=== PATIENT | male | born 1970 | race Caucasian/White ===

== ENCOUNTER 2016-11-08 15:16 | Outpatient (CLI) | payer MEDICAID ==
--- NOTE | 2016-11-09 09:05 | XRAY Report ---
THREE-VIEW LUMBAR SPINE: 11/08/2016 CLINICAL INDICATION: Pain. FINDINGS: AP, lateral, coned-down views of the lumbar spine demonstrate moderate degenerative disc a nd facet disease, with minimal retrolisthesis of L2 on L3 and L3 on L4, due to facet arthropathy. Th ere is no evidence of compression fracture. The bowel gas pattern is unremarkable. IMPRESSION: MODERATE DEGENERATIVE CHANGES. JOB #: [id number] EXT JOB #:[id number]
== END 2016-11-08 15:17 | disposition home or self-care (01) ==
LOC: DI.N 15:16
PROVIDERS: ATTEND Family Medicine
DX: M51.16 Intervertebral disc disorders with radiculopathy, lumbar region (principal); M43.16 Spondylolisthesis, lumbar region; M47.9 Spondylosis, unspecified
CPT/HCPCS: 72100

== ENCOUNTER 2017-02-20 08:00 | Outpatient (CLI) | payer MEDICAID ==
[2017-02-20 14:18] LABS: ALBUMIN/GLOBULIN RATIO 1.6 (1.0-2.2); BILIRUBIN,TOTAL 0.6 mg/dL (0.2-1.0); BUN - BLOOD UREA NITROGEN 20 mg/dL (6-20); CARBON DIOXIDE - CO2 26 mmol/L (21-32); CHLORIDE 101 mmol/L (101-111); CREATININE 0.9 mg/dL (0.6-1.2); GFR - MDRD 90 (>89); GLUCOSE 106 mg/dL (70-100); POTASSIUM 4.1 mmol/L (3.5-5.0); SODIUM 134 mmol/L (135-145); TOTAL PROTEIN 6.8 g/dL (6.7-8.2)
== END 2017-02-20 08:01 | disposition home or self-care (01) ==
LOC: LAB.N 08:00
PROVIDERS: ATTEND Psychiatry & Neurology Psychiatry
DX: Z79.899 Other long term (current) drug therapy (principal)
CPT/HCPCS: 36415; 80053; 80164

== ENCOUNTER 2017-04-03 10:32 | Outpatient (CLI) | payer MEDICAID ==
--- NOTE | 2017-04-03 13:41 | XRAY Report ---
THREE VIEW LEFT INDEX FINGER: 04/03/2017 CLINICAL INDICATION: Finger pain. FINDINGS: AP, lateral, oblique views of the left index finger demonstrate minimal osteoarthritis. There is no evidence of fracture or dislocation. No radiopaque foreign body is seen in the soft tissues. IMPRESSION: MINIMAL OSTEOARTHRITIS. TD: 04/03/2017 13:40
== END 2017-04-03 10:33 | disposition home or self-care (01) ==
LOC: DI 10:32
PROVIDERS: ATTEND Nurse Practitioner Gerontology
DX: M19.042 Primary osteoarthritis, left hand (principal)
CPT/HCPCS: 73140

== ENCOUNTER 2017-05-09 08:00 | Outpatient (CLI) | payer MEDICAID ==
[2017-05-09 19:07] LABS: BASOPHILS # (AUTO) 0.1 10^3/uL (0.0-0.1); BASOPHILS % (AUTO) 0.5 %; EOSINOPHILS % (AUTO) 0.4 %; HGB - HEMOGLOBIN 14.8 g/dL (14.0-18.0); LYMPHOCYTES # (AUTO) 3.4 10^3/uL (1.5-3.5); LYMPHOCYTES % (AUTO) 25.7 %; MEAN CORPUSCULAR HEMOGLOBIN 30.9 pg (27.0-31.0); MEAN CORPUSCULAR HGB CONC 33.7 g/dL (32.0-36.0); MEAN CORPUSCULAR VOLUME 91.7 fL (80.0-94.0); MEAN PLATELET VOLUME 9.1 fL (7.4-11.4); MONOCYTES # (AUTO) 1.4 10^3/uL (0.0-1.0); MONOCYTES % (AUTO) 10.2 %; NEUTROPHILS # (AUTO) 8.5 10^3/uL (1.5-6.6); NEUTROPHILS % (AUTO) 63.2 %; PLT - PLATELET COUNT 301 10^3/uL (130-450); RED BLOOD COUNT 4.79 10^6/uL (4.70-6.10); RED CELL DISTRIBUTION WIDTH 13.7 % (12.0-15.0); WHITE BLOOD COUNT 13.4 x10^3/uL (4.8-10.8)
[2017-05-09 19:34] LABS: CALCIUM 9.2 mg/dL (8.5-10.3); CREATININE 1.1 mg/dL (0.6-1.2)
[2017-05-09 19:43] LABS: FERRITIN 99.8 ng/mL (23.9-336.2)
[2017-05-09 19:46] LABS: FOLATE 16.48 ng/mL (5.90 - >24.8)
== END 2017-05-09 08:01 | disposition home or self-care (01) ==
LOC: LAB.N 08:00
PROVIDERS: ATTEND Physician Assistant Medical
DX: M79.1 Myalgia (principal); R19.7 Diarrhea, unspecified; R52 Pain, unspecified; R53.83 Other fatigue
CPT/HCPCS: 36415; 80048; 82607; 82728; 82746; 83540; 84466; 85025

== ENCOUNTER 2017-05-13 09:36 | Outpatient (CLI) | payer MEDICAID ==
[2017-05-13 10:15] LABS: VALPROIC ACID (DEPAKOTE) 27.7 ug/mL
== END 2017-05-13 09:37 | disposition home or self-care (01) ==
LOC: LAB 09:36
PROVIDERS: ATTEND Psychiatry & Neurology Psychiatry
DX: Z79.899 Other long term (current) drug therapy (principal)
CPT/HCPCS: 36415; 80164

== ENCOUNTER 2017-09-12 10:34 | Outpatient (CLI) | payer MEDICAID ==
[2017-09-12 13:45] LABS: RHEUMATOID FACTOR NEGATIVE (Negative)
[2017-09-14 15:06] LABS: ANA SCREEN NEGATIVE (NEGATIVE)
== END 2017-09-12 10:35 | disposition home or self-care (01) ==
LOC: LAB.N 10:34
PROVIDERS: ATTEND Nurse Practitioner Gerontology
DX: M25.50 Pain in unspecified joint (principal)
CPT/HCPCS: 36415; 85651; 86038; 86140; 86430

== ENCOUNTER 2017-09-18 11:13 | Emergency (ER) | payer MEDICAID ==
[2017-09-18 11:22] VITALS: BP 110/85
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
[2017-09-18] MEDS ORDERED: TETANUS/DIPHTHERIA/PERTUSSIS 0.5 ML SYRINGE IM ONE (12:01)
[2017-09-18] MEDS ORDERED: LIDOCAINE 1%-EPI 1:100000 30 ML MDV ONE (12:06)
== END 2017-09-18 13:26 | disposition home or self-care (01) ==
LOC: ED 11:13
DX: S01.01XA Laceration without foreign body of scalp, initial encounter (principal); S09.90XA Unspecified injury of head, initial encounter; W22.8XXA Striking against or struck by other objects, initial encounter
CPT/HCPCS: 12002; 99283

== ENCOUNTER 2017-10-11 09:20 | Outpatient (CLI) | payer MEDICAID ==
[2017-10-11 10:10] LABS: VALPROIC ACID (DEPAKOTE) 35.4 ug/mL
== END 2017-10-11 09:21 | disposition home or self-care (01) ==
LOC: LAB 09:20
PROVIDERS: ATTEND Nurse Practitioner Psychiatric/Mental Health
DX: F31.11 Bipolar disorder, current episode manic without psychotic features, mild (principal)
CPT/HCPCS: 36415; 80164

== ENCOUNTER 2017-10-22 06:54 | Day surgery (SDC) | payer MEDICAID ==
[2017-10-22] MEDS ORDERED: LACTATED RINGERS 1,000 ML IV ONE ×2 (07:04→09:13)
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
[2017-10-22] MEDS ORDERED: BUPIVACAINE 0.25%-EPI 1:200000 PF 30 ML VIAL ONE (08:14)
[2017-10-22] MEDS ORDERED: BUPIVACAINE 0.25%-EPI 1:200000 PF 10 ML VIAL SUBQ ONE ×2 (08:30→08:41)
[2017-10-22] MEDS ORDERED: ONDANSETRON 4 MG/2 ML VIAL IVP ONE (08:50)
[2017-10-22] MEDS ORDERED: MIDAZOLAM 2 MG/2 ML VIAL IVP ONE (08:50)
[2017-10-22] MEDS ORDERED: fentaNYL 100 MCG/2 ML VIAL IVP ONE (08:50)
[2017-10-22] MEDS ORDERED: DEXAMETHASONE 4 MG/ML VIAL IVP ONE (08:50)
[2017-10-22] MEDS ORDERED: PROPOFOL 200 MG/20 ML VIAL IVP ONE (08:50)
[2017-10-22] MEDS ORDERED: LIDOCAINE-MPF 2% 5 ML VIAL IM ONE (08:50)
[2017-10-22] MEDS ORDERED: KETOROLAC 30 MG/ML VIAL ONE (09:11)
[2017-10-22 09:41] VITALS: BP 110/80
--- NOTE | 2017-10-22 12:56 | OPERATIVE REPORT ---
DATE OF SERVICE: 10/22/2017 Physician: Michelle Wesley MD PREOPERATIVE DIAGNOSIS: Bilateral carpal tunnel syndrome. POSTOPERATIVE DIAGNOSIS: Bilateral carpal tunnel syndrome. PROCEDURE PERFORMED: Bilateral carpal tunnel release. OPERATING SURGEON: Michelle Wesley MD ANESTHESIA: Local, MAC, Ozzie Esposito MD INDICATIONS FOR SURGERY: The patient is a 47-year-old male with bilateral chronic carpal tunnel synd debbie, prior history of left wrist laceration with possible preexisting median nerve injury proximal t o the carpal tunnel. He presents desiring carpal tunnel release and specific consent was for simply carpal tunnel release of both right and left wrists and not an exploration further up his forearm of his previously remotely injured area. DESCRIPTION OF OPERATIVE PROCEDURE: The patient was taken to the operating room. He was given light MAC anesthetic, after which each hand was sterilely prepped and draped in a standard fashion. Surgi bolivar timeout was held, after which each carpal tunnel was injected with approximately 6 or 7 mL of a c ombination of 1% lidocaine and 0.25% Marcaine plain. Once the anesthetics were fully set, the initial surgery was done on the right wrist with a 1-1/2 inc h incision in line with the third web taken through skin and subcutaneous tissue, identifying the und erlying transverse carpal ligament, which was divided in line with the incision. The extent of the r elease was on its distal margin to the superficial arch, and on the proximal margin ending at the dis paul wrist flexion crease. The area was irrigated thoroughly and closed with 3-0 nylon interrupted. Sterile dressings were applied. The attention was then drawn to the other wrist where the identical procedure was performed with a 1- 1/2 inch incision in the palm in line with the third web dissection to the ligament and division of t he ligament. In the left hand, the release was directly exposed distally to the superficial arch, an d on the proximal aspect a very careful release was done under direct vision, because of previous sca rring up to the distal wrist flexion crease, staying away from the area of prior injury, which led to an adequate decompression, but there was no direct vision of the area of prior trauma. The nerve di d appear intact on the left side in the field of view. The wound was irrigated thoroughly. Closure was with 3-0 nylon, and sterile dressings were applied. The patient was taken to recovery room in st able condition. ESTIMATED BLOOD LOSS: Minimal. COMPLICATIONS: None. COUNTS: Sponge and needle counts correct. TD: 10/22/2017 12:18
== END 2017-10-22 06:55 | disposition home or self-care (01) ==
LOC: SDS 06:54
PROVIDERS: ATTEND Orthopaedic Surgery
PROC: 01N50ZZ Release Median Nerve, Open Approach (ICD-10-PCS; 2017-10-22)
PROC: 01N50ZZ Release Median Nerve, Open Approach (ICD-10-PCS; principal; 2017-10-22 08:15)
DX: G56.03 Carpal tunnel syndrome, bilateral upper limbs (principal); R20.2 Paresthesia of skin; L90.5 Scar conditions and fibrosis of skin; S61.512S Laceration without foreign body of left wrist, sequela; I10 Essential (primary) hypertension; E66.3 Overweight; F17.210 Nicotine dependence, cigarettes, uncomplicated; F25.0 Schizoaffective disorder, bipolar type; Z68.35 Body mass index [BMI] 35.0-35.9, adult; Z79.899 Other long term (current) drug therapy
CPT/HCPCS: 64721; J7120

== ENCOUNTER 2017-12-02 13:31 | Outpatient (CLI) | payer MEDICAID | END 2017-12-02 13:32 | disposition home or self-care (01) | LOC: DI 13:31 | PROVIDERS: ATTEND Physician Assistant Medical | DX: Z53.9 Procedure and treatment not carried out, unspecified reason (principal) ==

== ENCOUNTER 2017-12-02 16:09 | Emergency (ER) | payer MEDICAID ==
[2017-12-02] MEDS ORDERED: KETOROLAC 60 MG/2 ML VIAL IVP STA (16:55)
[2017-12-02] MEDS ORDERED: ONDANSETRON 4 MG/2 ML VIAL IVP STA (16:55)
--- NOTE | 2017-12-02 16:58 | ED Physician Documentation ---
PD HPI ABD PAIN - Stated complaint Stated Complaint: CONFUSION/MALE - Chief complaint Chief Complaint: Abd Pain - History obtained from History obtained from: Patient - History of Present Illness Timing - onset: Last night (In the middle of the night last night he got up feeling like he had to have a bowel movement. He strained for a while and nothing came out, drank a lot of water and then had some diarrhea but has persistent left lower quadrant and left groin pain with mild nausea today. No history of abdominal surgeries, hernias,. He was seen by his physician earlier in the day and scheduled for a scrotal ultrasound, but was feeling a little disoriented on the way here and got concerned. No fevers. No urinary complaints.) Review of Systems Ten Systems: 10 systems reviewed and negative Constitutional: denies: Fever, Chills Cardiac: denies: Chest pain / pressure, Palpitations Respiratory: denies: Dyspnea, Cough GI: reports: Abdominal Pain, Nausea, Constipation, Diarrhea. denies: Vomiting : denies: Dysuria, Frequency PD PAST MEDICAL HISTORY - Past Medical History Past Medical History: No Cardiovascular: Hypertension Respiratory: None Endocrine/Autoimmune: None GI: None : None HEENT: Chronic vision loss Psych: Bipolar disorder, Schizophrenia Musculoskeletal: None Derm: None - Past Surgical History Past Surgical History: No Ortho: Carpal Tunnel surgery - Present Medications Home Medications: Ambulatory Orders Medication Instructions Recorded Confirmed Diclofenac Sodium Dr [Voltaren] 75 mg PO QPM 10/21/17 10/22/17 Divalproex Sodium [Depakote] 500 mg PO BID 10/21/17 10/22/17 Divalproex Sodium [Depakote] 750 mg PO QPM 10/21/17 10/22/17 Naproxen [Naprosyn] 500 mg PO PRN PRN 10/21/17 10/22/17 RX: Metoprolol Tartrate 25 mg PO BID 10/21/17 10/22/17 RX: Trazodone HCl 150 mg PO QPM 10/21/17 10/22/17 buPROPion HCl [Wellbutrin Sr] 200 mg PO BID 10/21/17 10/22/17 risperiDONE [Risperdal] 1 mg PO DAILY 10/21/17 10/22/17 Ciprofloxacin HCl [Cipro] 500 mg PO BID #20 tablet 10/08/18 Hydrocodone/Acetaminophen 1 - 2 each PO Q6H PRN #10 tablet 12/02/17 [Hydrocodon-Acetaminophen 5-325] Metronidazole [Flagyl] 500 mg PO TID #30 tablet 12/02/17 - Allergies Allergies/Adverse Reactions: Allergies Allergy/AdvReac Type Severity Reaction Status Date / Time haloperidol [From Haldol] Allergy Itching Verified 12/02/17 16:14 [email or web address] [From Chantix] Allergy Dizziness Verified 12/02/17 16:14 librax Allergy Anaphylaxis Uncoded 12/02/17 16:14 - Social History Does the pt smoke?: Yes Smoking Status: Current some day smoker Does the pt drink ETOH?: No Does the pt have substance abuse?: No - Immunizations Immunizations are current?: Yes - POLST Patient has POLST: No PD ED PE NORMAL - Vitals Vital signs reviewed: Yes - General General: Alert and oriented X 3, No acute distress - HEENT HEENT: PERRL, EOMI - Neck Neck: Supple, no meningeal sign, No bony TTP - Cardiac Cardiac: RRR, No murmur - Respiratory Respiratory: No respiratory distress, Clear bilaterally - Abdomen Abdomen: Normal bowel sounds, Soft, Other (Significant tenderness in the left lower quadrant without surgical signs) - Male Male : Other (Bilateral normal cremasteric reflex, normal lie of the testicles without testicular swelling or tenderness. No hernia mass.) - Rectal Rectal: Other (No fecal impaction, nontender) - Back Back: No CVA TTP, No spinal TTP - Derm Derm: Normal color, Warm and dry - Extremities Extremities: No edema, No calf tenderness / cord - Neuro Neuro: Alert and oriented X 3, Normal speech Results - Vitals Vitals: Vital Signs - 24 hr 12/02/17 16:11 Temperature 36.4 C L Heart Rate 113 H Respiratory 16 Rate Blood Pressure 125/85 H O2 Saturation 99 Oxygen O2 Source Room air - Rads (name of study) CT A/P Radiology: EMP read contemporaneously (Uncomplicated diverticulitis, gallstone, left bilat hernia with fat only.) Scrotal sono Radiology: EMP read contemporaneously (NAD, microliths, inguinal hernia) PD MEDICAL DECISION MAKING - ED course ED course: 47-year-old gentleman presents with acute left pelvic pain. He was sent for an outpatient ultrasound, but to my examination seems more like an intra-abdominal source which is proven on CT showing uncomplicated diverticulitis for which she is treated with Cipro and Flagyl. - Sepsis Event Vital Signs: Vital Signs - 24 hr 12/02/17 16:11 Temperature 36.4 C L Heart Rate 113 H Respiratory 16 Rate Blood Pressure 125/85 H O2 Saturation 99 Oxygen O2 Source Room air Departure - Departure Disposition: 01 Home, Self Care Clinical Impression: Diverticulitis, Pelvic pain in male Condition: Good Record reviewed to determine appropriate education?: Yes Instructions: ED Diverticulitis Prescriptions: Ciprofloxacin HCl [Cipro] 500 mg PO BID #20 tablet Hydrocodone/Acetaminophen [Hydrocodon-Acetaminophen 5-325] 1 - 2 each PO Q6H PRN #10 tablet PRN Reason: pain Metronidazole [Flagyl] 500 mg PO TID #30 tablet Comments: Do not drink alcohol while taking the antibiotics. Return if worse in any way. Follow-up with your doctor in 3-4 days for recheck, also note the given the diagnosis she will need to be scheduled for a colonoscopy in 4-6 months. Discharge Date/Time: 12/02/17 19:44
[2017-12-02 17:12] LABS: HGB - HEMOGLOBIN 14.3 g/dL (14.0-18.0)
[2017-12-02 17:25] LABS: BASOPHILS % (AUTO) 0.3 %; LYMPHOCYTES % (AUTO) 5.2 %; MEAN CORPUSCULAR HEMOGLOBIN 31.7 pg (27.0-31.0); MEAN CORPUSCULAR HGB CONC 34.3 g/dL (32.0-36.0); MEAN CORPUSCULAR VOLUME 92.5 fL (80.0-94.0); MEAN PLATELET VOLUME 8.8 fL (7.4-11.4); MONOCYTES % (AUTO) 6.5 %; PLT - PLATELET COUNT 248 10^3/uL (130-450); RED BLOOD COUNT 4.51 10^6/uL (4.70-6.10); RED CELL DISTRIBUTION WIDTH 13.2 % (12.0-15.0); WHITE BLOOD COUNT 20.3 x10^3/uL (4.8-10.8)
[2017-12-02 17:28] LABS: ALBUMIN 4.2 g/dL (3.2-5.5); ALBUMIN/GLOBULIN RATIO 1.4 (1.0-2.2); BILIRUBIN,TOTAL 0.9 mg/dL (0.2-1.0); CALCIUM 8.9 mg/dL (8.5-10.3); CREATININE 0.9 mg/dL (0.6-1.2); TOTAL PROTEIN 7.1 g/dL (6.7-8.2)
[2017-12-02 17:32] LABS: ABNORMAL LYMPHS % (MANUAL) 0 %; VALPROIC ACID (DEPAKOTE) 66.3 ug/mL
[2017-12-02] MEDS ORDERED: IOPAMIDOL-300 100 ML VIAL ONE (17:33)
[2017-12-02 17:38] LABS: BILIRUBIN,URINE NEGATIVE (NEGATIVE); GLUCOSE, URINE (UA) NEGATIVE (NEGATIVE); KETONES,URINE (UA) 15 mg/dL (NEGATIVE); LEUKOCYTE ESTERASE, URINE NEGATIVE (NEGATIVE); NITRITE,URINE NEGATIVE (NEGATIVE); OCCULT BLOOD,URINE NEGATIVE (NEGATIVE); PROTEIN,URINE NEGATIVE (NEGATIVE); UROBILINOGEN,URINE 0.2 (NORMAL) E.U./dL (NORMAL)
[2017-12-02 17:44] LABS: CLARITY,URINE CLEAR (CLEAR)
[2017-12-02 18:13] LABS: BAND NEUTROPHILS % (MANUAL) 7 %; DIFFERENTIAL COMMENT MANUAL DIFFERENTIAL; LYMPHOCYTES # (MANUAL) 0.4 10^3/uL (1.5-3.5); LYMPHOCYTES % (MANUAL) 2 %; NEUTROPHILS # (MANUAL) 18.9 10^3/uL (1.5-6.6); NEUTROPHILS % (MANUAL) 86 %; PLATELET ESTIMATE, MANUAL NORMAL (130-450,000) (NORMAL); PLATELET MORPHOLOGY NORMAL APPEARANCE (NORMAL); RBC MORPHOLOGY (MULTIPLE) NORMAL APPEARANCE (NORMAL)
[2017-12-02] MEDS ORDERED: IOPAMIDOL-300 100 ML VIAL IVP ONE (18:58)
--- NOTE | 2017-12-02 19:23 | CT Report ---
Reason: IV only, LLQ pain Procedure Date: 12/02/2017 Accession Number: [id number] / [id number] Procedure: CT - Abdomen/Pelvis W/ CPT Code: FULL RESULT: EXAM: CT ABDOMEN AND PELVIS EXAM DATE: 12/02/2017 06:21 PM. CLINICAL HISTORY: IV only, LLQ pain. COMPARISONS: None. TECHNIQUE: Routine helical CT imaging was performed through the abdomen and pelvis. IV contrast: 100 cc Isovue-300. Enteric contrast: No. Reconstructions: Coronal and sagittal. In accordance with CT protocol optimization, one or more of the following dose reduction techniques were utilized for this exam: automated exposure control, adjustment of mA and/or KV based on patient size, or use of iterative reconstructive technique. FINDINGS: Lung Bases: Mild dependent change. Liver: Prominent with right lobe 21.6 cm in height. Mild diffuse steatosis. No focal lesion. Gallbladder/Bile Ducts: A 2.3 cm gallstone in the dependent gallbladder. No gallbladder wall thickening, pericholecystic infiltration, or dilated bile ducts. Spleen: Normal. Pancreas: Unremarkable. Adrenal Glands: No nodule. Kidneys: No hydronephrosis. An 8 mm hypodensity in medial cortex of right midpole, probably cystic. Otherwise unremarkable bilateral kidneys. Peritoneal Cavity/Bowel: Mild sigmoid diverticulosis. Eccentric segmental thickening of mid sigmoid colon with pericolic fat stranding and mild thickening of sigmoid mesocolon, consistent with acute diverticulitis. No upstream dilatation, free air or abscess. Unremarkable small bowel including terminal ileum. Normal retrocecal appendix. No mesenteric adenopathy. Retroperitoneum: No mass or adenopathy. Pelvic Organs: Intact bladder with tiny urachal remnant. No prostatic enlargement. Small fat-containing direct inguinal hernias, right more prominent than left. Vasculature: Modest calcified plaques of infrarenal abdominal aorta. No aneurysm or other significant abnormality. Bones: Moderate multilevel degenerative changes of lumbar spine. IMPRESSION: 1. Consistent with uncomplicated acute sigmoid diverticulitis. 2. No other focal inflammatory or obstructive process. 3. Cholelithiasis. 4. Enlarged fatty liver. 5. Small right greater than left fat-containing bilateral inguinal hernias, likely direct. RADIA
[2017-12-02] MEDS ORDERED: CIPROFLOXACIN 250 MG TABLET PO STA (19:27)
[2017-12-02] MEDS ORDERED: metroNIDAZOLE 250 MG TABLET PO STA (19:27)
[2017-12-02 19:32] VITALS: BP 147/94
--- NOTE | 2017-12-02 19:34 | Ultrasound Report ---
Reason: L groin pain Procedure Date: 12/02/2017 Accession Number: [id number] / [id number] Procedure: US - Testicle w/Doppler CPT Code: FULL RESULT: EXAM: SCROTAL ULTRASOUND EXAM DATE: 12/02/2017 07:12 PM. CLINICAL HISTORY: Left groin pain. COMPARISON: ABDOMEN/PELVIS W/ 12/02/2017 5:53 PM. TECHNIQUE: Real-time scanning was performed with static images obtained. Both color-flow and Doppler spectral analysis were utilized. FINDINGS: Right: Testis: 4.9 x 1.7 x 3.2 cm. Normal size. A few microlithiasis. No abnormal blood flow. Epididymis: 2.2 x .76 x 1.0 cm. Normal size and echotexture. No solid mass, calcification, or abnormal blood flow. Right epididymal cyst measuring 9 x 5 x 6 mm, appears simple. Hydrocele: Within normal limits. Varicocele: None. Left: Testis: 4.8 x 1.9 x 3.0 cm. Normal size and echotexture. No mass, calcification, or abnormal blood flow. Epididymis: 2.6 x .76 x 1.3 cm. Normal size and echotexture. No mass or abnormal blood flow. Hydrocele: None. Varicocele: None. There appears to be a small fat-containing inguinal hernia with a neck of 1.1 cm. IMPRESSION: 1. No acute findings. 2. A few right testicular microlithiasis. 3. There appears to be a small fat-containing inguinal hernia with a neck of 1.1 cm. RADIA
== END 2017-12-02 19:44 | disposition home or self-care (01) ==
LOC: ED 16:09
DX: K57.92 Diverticulitis of intestine, part unspecified, without perforation or abscess without bleeding (principal); I10 Essential (primary) hypertension; Z79.1 Long term (current) use of non-steroidal anti-inflammatories (NSAID); F17.200 Nicotine dependence, unspecified, uncomplicated; K76.0 Fatty (change of) liver, not elsewhere classified; K40.90 Unilateral inguinal hernia, without obstruction or gangrene, not specified as recurrent
CPT/HCPCS: 36415; 74177; 76870; 80053; 80164; 81003; 83690; 85025; 93975; 96374; 96375; 99283; 99284; A9270; Q9967; 81001; 87086

== ENCOUNTER 2017-12-13 08:31 | Outpatient (CLI) | payer MEDICAID | END 2017-12-13 08:32 | disposition home or self-care (01) | LOC: LAB.N 08:31 | PROVIDERS: ATTEND Nurse Practitioner Psychiatric/Mental Health | DX: F31.11 Bipolar disorder, current episode manic without psychotic features, mild (principal) | CPT/HCPCS: 36415; 80164 ==

== ENCOUNTER 2018-01-30 11:26 | Day surgery (SDC) | payer MEDICAID ==
[2018-01-30] MEDS ORDERED: LACTATED RINGERS 1,000 ML IV ONE ×2 (12:02→13:20)
[2018-01-30] MEDS ORDERED: fentaNYL 250 MCG/5 ML VIAL IVP ONE (12:51)
[2018-01-30] MEDS ORDERED: MIDAZOLAM 2 MG/2 ML VIAL IVP ONE (12:51)
--- NOTE | 2018-01-30 13:21 | ANESTHESIA ---
Pre-Anesthesia VS, & Labs - Diagnosis Abnormal CT scan of colon - Procedure colonoscopy Vital Signs: Temp Pulse Resp BP Pulse Ox 37 C 81 18 134/92 H 97 01/30/18 11:40 01/30/18 11:40 01/30/18 11:40 01/30/18 11:40 01/30/18 11:40 Height 5 ft 10 in Weight (kg) 111 kg Body Mass Index 33.9 - NPO >8 hours Home Medications and Allergies Divalproex Sodium [Depakote] 500 mg PO BID 10/21/17 Divalproex Sodium [Depakote] 750 mg PO QPM 10/21/17 Metoprolol Tartrate 25 mg PO BID 10/21/17 Trazodone HCl 150 mg PO QPM 10/21/17 buPROPion HCl [Wellbutrin Sr] 200 mg PO BID 10/21/17 risperiDONE [Risperdal] 1 mg PO DAILY 10/21/17 Allergies/Adverse Reactions: Allergies Allergy/AdvReac Type Severity Reaction Status Date / Time haloperidol [From Haldol] Allergy Itching Verified 12/02/17 16:14 [email or web address] [From Chantix] Allergy Dizziness Verified 12/02/17 16:14 librax Allergy Anaphylaxis Uncoded 12/02/17 16:14 Anes History & Medical History - Medical History Cardiovascular: reports: Hypertension Pulmonary: reports: None Gastrointestinal: reports: None Urinary: reports: None Musculoskeletal: reports: None Endocrine/Autoimmune: reports: None Skin: reports: None Smoking Status: Current some day smoker - Surgical History Orthopedic: Carpal Tunnel surgery Exam General: Other (Unable to assess, rescue sedation) Plan Anesthesia Type: MAC Consent for Procedure(s) Verified and Reviewed: Yes Code Status: Attempt Resuscitation ASA classification: 3-Severe systemic disease Is this case an emergency?: Yes (Rescue sedation, history obtained from chart review)
[2018-01-30] MEDS ORDERED: PROPOFOL 200 MG/20 ML VIAL IVP ONE (13:42)
[2018-01-30 14:32] VITALS: BP 123/89
== END 2018-01-30 11:27 | disposition home or self-care (01) ==
LOC: SDS 11:26
PROVIDERS: ATTEND Internal Medicine Gastroenterology
PROC: 0DBP8ZZ Excision of Rectum, Via Natural or Artificial Opening Endoscopic (ICD-10-PCS; 2018-01-30)
PROC: 0DBN8ZZ Excision of Sigmoid Colon, Via Natural or Artificial Opening Endoscopic (ICD-10-PCS; principal; 2018-01-30 13:15)
DX: R93.3 Abnormal findings on diagnostic imaging of other parts of digestive tract (principal); K57.30 Diverticulosis of large intestine without perforation or abscess without bleeding; D12.5 Benign neoplasm of sigmoid colon; K62.1 Rectal polyp; T88.52XA Failed moderate sedation during procedure, initial encounter; I10 Essential (primary) hypertension; F17.210 Nicotine dependence, cigarettes, uncomplicated; E66.9 Obesity, unspecified; Z68.35 Body mass index [BMI] 35.0-35.9, adult
CPT/HCPCS: 45380; 45385; J3010; J7120

== ENCOUNTER 2018-01-31 08:00 | Outpatient (CLI) | payer MEDICAID ==
[2018-01-31 12:56] LABS: VALPROIC ACID (DEPAKOTE) 67.8 ug/mL
== END 2018-01-31 23:59 ==
LOC: LAB.N 08:00
PROVIDERS: ATTEND Nurse Practitioner Psychiatric/Mental Health
DX: F31.11 Bipolar disorder, current episode manic without psychotic features, mild (principal)
CPT/HCPCS: 36415; 80164

== ENCOUNTER 2018-05-28 07:41 | Outpatient (CLI) | payer MEDICAID | END 2018-05-28 23:59 | disposition home or self-care (01) | LOC: RT.N 07:41 | PROVIDERS: ATTEND Physician Assistant Medical | DX: Z79.899 Other long term (current) drug therapy (principal) | CPT/HCPCS: 93005 ==

== ENCOUNTER 2018-08-18 10:43 | Outpatient (CLI) | payer MEDICAID ==
--- NOTE | 2018-08-18 11:57 | XRAY Report ---
Reason: HIP JOINT PAIN,RIGHT Procedure Date: 08/18/2018 Accession Number: [id number] / [id number] Procedure: WCP - Hip w/Pelvis 2-3V RT CPT Code: FULL RESULT: EXAM: RIGHT HIP RADIOGRAPHY EXAM DATE: 08/18/2018 10:57 AM. CLINICAL HISTORY: Hip joint pain, right. COMPARISON: None. TECHNIQUE: 2 views. FINDINGS: Bones: Normal. No fractures or bone lesion. Joints: Relatively symmetric mild joint space narrowing of the femoral acetabular joints with subjectively moderate osteophytosis. Soft Tissues: Normal. No soft tissue swelling. IMPRESSION: Mild to moderate degenerative hip disease. RADIA
== END 2018-08-18 10:44 | disposition home or self-care (01) ==
LOC: DI.WCP 10:43
PROVIDERS: ATTEND Family Medicine
DX: M16.11 Unilateral primary osteoarthritis, right hip (principal)

== ENCOUNTER 2018-08-30 13:28 | Emergency (ER) | payer MEDICAID ==
[2018-08-30 13:35] VITALS: BP 144/86
[2018-08-30] MEDS ORDERED: TRIAMCINOLONE 40 MG/ML VIAL IM STA (13:44)
[2018-08-30] MEDS ORDERED: BUPIVACAINE 0.5%-EPI 1:200000 PF 10 ML VIAL SUBQ STA (13:44)
--- NOTE | 2018-08-30 13:51 | ED Physician Documentation ---
History of Present Illness - Stated complaint Stated Complaint: RT HIP PX - Chief complaint Chief Complaint: Ext Problem - History obtained from History obtained from: Patient - History of Present Illness Timing: Other (48-year-old gentleman for about a month without specific injury has had progressive pain of the superior right buttock radiating down towards the lateral right hip down to the knee and in fact all the way to the foot. He was diagnosed with hip osteoarthritis by x-ray. Hurts to stand. He was prescribed an NSAID without relief. There is no weakness, numbness, tingling, saddle anesthesia, incontinence, or fevers.) Review of Systems Ten Systems: 10 systems reviewed and negative Constitutional: denies: Fever, Chills Cardiac: denies: Chest pain / pressure, Palpitations Respiratory: denies: Dyspnea, Cough PD PAST MEDICAL HISTORY - Past Medical History Cardiovascular: Hypertension Respiratory: None Endocrine/Autoimmune: None GI: None : None HEENT: Chronic vision loss Psych: Bipolar disorder, Schizophrenia Musculoskeletal: None Derm: None - Past Surgical History Past Surgical History: No Ortho: Carpal Tunnel surgery - Present Medications Home Medications: Ambulatory Orders Medication Instructions Recorded Confirmed Divalproex Sodium [Depakote] 500 mg PO BID 10/21/17 01/30/18 Divalproex Sodium [Depakote] 750 mg PO QPM 10/21/17 01/30/18 Metoprolol Tartrate 25 mg PO BID 10/21/17 01/30/18 Trazodone HCl 150 mg PO QPM 10/21/17 01/30/18 buPROPion HCl [Wellbutrin Sr] 200 mg PO BID 10/21/17 01/30/18 risperiDONE [Risperdal] 1 mg PO DAILY 10/21/17 01/30/18 Hydrocodone/Acetaminophen 1 - 2 each PO Q6H PRN #14 tablet 08/30/18 [Hydrocodon-Acetaminophen 5-325] Physical Therapy 1 unit TD ONCE #1 08/30/18 - Allergies Allergies/Adverse Reactions: Allergies Allergy/AdvReac Type Severity Reaction Status Date / Time haloperidol [From Haldol] Allergy Itching Verified 08/30/18 13:35 [email or web address] [From Chantix] Allergy Dizziness Verified 08/30/18 13:35 librax Allergy Anaphylaxis Uncoded 08/30/18 13:35 - Social History Does the pt smoke?: Yes Smoking Status: Current every day smoker Does the pt drink ETOH?: No Does the pt have substance abuse?: No - Immunizations Immunizations are current?: Yes - POLST Patient has POLST: No PD ED PE NORMAL - Vitals Vital signs reviewed: Yes - General General: Alert and oriented X 3, No acute distress - Extremities Extremities: Other (There is a focal spot of tenderness of the superior right buttock, pain with internal and external rotation of the right hip. The patient has equal and normal Achilles and patellar reflexes bilaterally. Normal sensation in all areas of the legs. Patient denies saddle anesthesia. Normal strength in flexion-extension at the ankles, knees, and flexion of the hips.) - Neuro Neuro: Alert and oriented X 3, Normal speech Results - Vitals Vitals: Vital Signs - 24 hr 08/30/18 13:31 Temperature 36.2 C L Heart Rate 91 Respiratory 22 Rate Blood Pressure 144/86 H O2 Saturation 96 Oxygen O2 Source Room air Procedures - General procedure General procedure: In the past he has had relief with similar symptoms with trigger point injection and after informed consent the trigger point of the superior right buttock was found and infiltrated locally with a mixture of 8 mL of Marcaine with epinephrine and 40 mg of Kenalog. Departure - Departure Disposition: 01 Home, Self Care Clinical Impression: Sciatica Qualifiers: Laterality: right Qualified Code(s): M54.31 - Sciatica, right side Condition: Good Record reviewed to determine appropriate education?: Yes Health Concerns: back pain Plan of Treatment: trigger point injection, continue NSAID, add hydrocodone, physical therapy Care Goals: pain improvement Assessment: as above Instructions: ED Sciatica Prescriptions: Hydrocodone/Acetaminophen [Hydrocodon-Acetaminophen 5-325] 1 - 2 each PO Q6H PRN #14 tablet PRN Reason: pain Physical Therapy 1 unit TD ONCE #1 Comments: Call your doctor to arrange a follow-up appointment, make the next available gary ointment. In the interim, return anytime if worse or if new symptoms develop.
== END 2018-08-30 14:01 | disposition home or self-care (01) ==
LOC: ED 13:28
DX: M54.31 Sciatica, right side (principal); I10 Essential (primary) hypertension; F17.200 Nicotine dependence, unspecified, uncomplicated
CPT/HCPCS: 20552; 99283

== ENCOUNTER 2019-03-27 09:41 | Outpatient (CLI) | payer MEDICAID ==
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
== END 2019-03-27 09:42 | disposition home or self-care (01) ==
LOC: DI.N 09:41
PROVIDERS: ATTEND Physician Assistant Medical
DX: R07.89 Other chest pain (principal)
CPT/HCPCS: 71046

== ENCOUNTER 2019-03-27 09:42 | Outpatient (CLI) | payer MEDICAID ==
[2019-03-27 12:04] LABS: HGB - HEMOGLOBIN 14.3 g/dL (14.0-18.0); MEAN CORPUSCULAR HEMOGLOBIN 31.3 pg (27.0-31.0); MEAN CORPUSCULAR HGB CONC 33.6 g/dL (32.0-36.0); MEAN PLATELET VOLUME 11.1 fL (7.4-11.4); RED BLOOD COUNT 4.57 10^6/uL (4.70-6.10); RED CELL DISTRIBUTION WIDTH 13.2 % (12.0-15.0); WHITE BLOOD COUNT 8.6 x10^3/uL (4.8-10.8)
[2019-03-27 12:12] LABS: CREATININE 0.9 mg/dL (0.6-1.2)
== END 2019-03-27 23:59 | disposition home or self-care (01) ==
LOC: LAB.N 09:42
PROVIDERS: ATTEND Physician Assistant Medical
DX: R07.89 Other chest pain (principal)
CPT/HCPCS: 36415; 80048; 83880; 84443; 85027

== ENCOUNTER 2019-04-09 09:20 | Outpatient (CLI) | payer MEDICAID | END 2019-04-09 09:21 | disposition home or self-care (01) | LOC: RT 09:20 | PROVIDERS: ATTEND Physician Assistant Medical | DX: R07.89 Other chest pain (principal) | CPT/HCPCS: 94010 ==

== ENCOUNTER 2019-04-22 10:53 | Outpatient (CLI) | payer MEDICAID ==
--- NOTE | 2019-04-22 18:12 | XRAY Report ---
Reason: HAND PAIN Procedure Date: 04/22/2019 Accession Number: [id number] / [id number] Procedure: XRN - Hand 2 View BILAT CPT Code: Final Report FULL RESULT: EXAMS: 1. Right Hand Radiography 2. Left Hand Radiography EXAM DATE: 04/22/2019 11:27 AM. CLINICAL HISTORY: HAND PAIN. COMPARISON: None. TECHNIQUE: 2 views each hand. FINDINGS: Right: Bones: No evidence of acute fracture. There is a subcentimeter geographic lytic lesion within the second proximal phalanx. This probably represents a small bone cyst. Joints: Normal. No subluxations. Soft Tissues: No significant soft tissue abnormalities are seen. There is no evidence of radiopaque foreign body. Left: Bones: Normal. No fractures or bone lesions. Joints: Normal. No subluxations. Soft Tissues: There is a punctate radiopacity within the distal fourth digit soft tissues. IMPRESSION: 1. No evidence of fracture or dislocation. 2. There is a geographic lytic lesion within the second proximal phalanx. 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 3. There is a punctate metallic radiopacity within the soft tissues of the distal fourth digit. RADIA
== END 2019-04-22 10:54 | disposition home or self-care (01) ==
LOC: DI.N 10:53
PROVIDERS: ATTEND Physician Assistant Medical
DX: M79.642 Pain in left hand (principal); M79.641 Pain in right hand; M89.9 Disorder of bone, unspecified

== ENCOUNTER 2019-04-22 11:35 | Outpatient (CLI) | payer MEDICAID ==
[2019-04-22 18:31] LABS: BASOPHILS # (AUTO) 0.1 10^3/uL (0.0-0.1); BASOPHILS % (AUTO) 0.6 %; EOSINOPHILS # (AUTO) 0.2 10^3/uL (0.0-0.7); EOSINOPHILS % (AUTO) 1.9 %; HGB - HEMOGLOBIN 14.9 g/dL (14.0-18.0); LYMPHOCYTES # (AUTO) 2.7 10^3/uL (1.5-3.5); LYMPHOCYTES % (AUTO) 30.4 %; MEAN CORPUSCULAR HEMOGLOBIN 30.8 pg (27.0-31.0); MEAN CORPUSCULAR HGB CONC 32.7 g/dL (32.0-36.0); MEAN PLATELET VOLUME 11.3 fL (7.4-11.4); MONOCYTES # (AUTO) 0.8 10^3/uL (0.0-1.0); MONOCYTES % (AUTO) 9.4 %; NEUTROPHILS # (AUTO) 5.1 10^3/uL (1.5-6.6); NEUTROPHILS % (AUTO) 57.4 %; PLT - PLATELET COUNT 311 10^3/uL (130-450); RED BLOOD COUNT 4.84 10^6/uL (4.70-6.10); RED CELL DISTRIBUTION WIDTH 13.2 % (12.0-15.0); WHITE BLOOD COUNT 8.9 x10^3/uL (4.8-10.8)
[2019-04-22 20:23] LABS: RHEUMATOID FACTOR NEGATIVE (Negative)
== END 2019-04-22 23:59 | disposition home or self-care (01) ==
LOC: LAB.N 11:35
PROVIDERS: ATTEND Physician Assistant Medical
DX: M79.643 Pain in unspecified hand (principal)
CPT/HCPCS: 36415; 85025; 85651; 86140; 86200; 86430

== ENCOUNTER 2019-06-28 18:17 | Inpatient (IN) | payer MEDICAID ==
[2019-06-28] MEDS ORDERED: ONDANSETRON 4 MG/2 ML VIAL IVP STA (18:29)
[2019-06-28] MEDS ORDERED: SODIUM CHLORIDE 0.9% 1,000 ML IV STA (18:29)
[2019-06-28] MEDS ORDERED: HYDROmorphone 1 MG/ML CARPUJECT IVP STA (18:29)
--- NOTE | 2019-06-28 18:42 | ED Physician Documentation ---
PD HPI ABD PAIN - Stated complaint Stated Complaint: ABD PX - Chief complaint Chief Complaint: Abd Pain - History obtained from History obtained from: Patient - History of Present Illness Timing - onset: Yesterday Timing - duration: Days (2) Timing - details: Gradual onset Pain level max: 8 Pain level now: 8 Quality: Aching, Pain Location: LLQ Radiation: No: Chest, , Lower back, Left flank, Left shoulder, Right flank, Right shoulder, Upper back Improved by: Laying still Worsened by: Moving Associated symptoms: Constipation. No: Fever, Nausea, Vomiting, Hematemesis, Diarrhea, Melena, Hematochezia, Dysuria, Hematuria Similar symptoms before: Diagnosis (diverticulitis) Recently seen: Not recently seen - Additional information Additional information: Patient states that he had a fever at home, 101.5 yesterday. Worsening pain today. Similar to past history of diverticulitis Review of Systems Ten Systems: 10 systems reviewed and negative Constitutional: reports: Fever, Chills Nose: denies: Rhinorrhea / runny nose, Congestion GI: denies: Vomiting, Diarrhea Skin: denies: Rash Musculoskeletal: denies: Neck pain, Back pain Neurologic: denies: Headache PD PAST MEDICAL HISTORY - Past Medical History Cardiovascular: Hypertension Respiratory: None Endocrine/Autoimmune: None GI: None : None HEENT: Chronic vision loss Psych: Bipolar disorder, Schizophrenia Musculoskeletal: None Derm: None - Past Surgical History Past Surgical History: No Ortho: Carpal Tunnel surgery - Present Medications Home Medications: Ambulatory Orders Medication Instructions Recorded Confirmed Divalproex Sodium [Depakote] 500 mg PO BID 10/21/17 01/30/18 Divalproex Sodium [Depakote] 750 mg PO QPM 10/21/17 01/30/18 Metoprolol Tartrate 25 mg PO BID 10/21/17 01/30/18 Trazodone HCl 150 mg PO QPM 10/21/17 01/30/18 risperiDONE [Risperdal] 1 mg PO DAILY 10/21/17 01/30/18 - Allergies Allergies/Adverse Reactions: Allergies Allergy/AdvReac Type Severity Reaction Status Date / Time chlordiazepoxide Allergy Anaphylaxis Verified 06/28/19 18:41 [From Librax (with clidinium)] clidinium Allergy Anaphylaxis Verified 06/28/19 18:41 [From Librax (with clidinium)] haloperidol [From Haldol] Allergy Itching Verified 08/30/18 13:35 [email or web address] [From Chantix] Allergy Dizziness Verified 08/30/18 13:35 - Social History Does the pt smoke?: Yes Smoking Status: Current every day smoker Does the pt drink ETOH?: No Does the pt have substance abuse?: No - Immunizations Immunizations are current?: Yes - POLST Patient has POLST: No PD ED PE NORMAL - Vitals Vital signs reviewed: Yes - General General: Alert and oriented X 3, No acute distress, Well developed/nourished, Other (Appears anxious and uncomfortable) - HEENT HEENT: Moist mucous membranes - Neck Neck: Supple, no meningeal sign - Cardiac Cardiac: Strong equal pulses, Other (Tachycardic) - Respiratory Respiratory: No respiratory distress, Clear bilaterally - Abdomen Abdomen: Soft, Other (Tender to palpation left lower quadrant. No peritoneal signs. Distended abdomen.) - Derm Derm: Warm and dry, No rash - Extremities Extremities: No edema, No calf tenderness / cord - Neuro Neuro: Alert and oriented X 3 - Psych Psych: Other (Anxious appearing) Results - Vitals Vitals: Vital Signs - 24 hr 06/28/19 06/28/19 06/28/19 18:25 18:27 18:59 Temperature 38.1 C H Heart Rate 131 H 143 H 130 H Respiratory 18 16 Rate Blood Pressure 170/101 H 145/84 H 159/91 H O2 Saturation 96 99 Oxygen O2 Source Room air - Labs Labs: Laboratory Tests 06/28/19 06/28/19 06/28/19 18:35 18:35 18:35 WBC 25.4 H RBC 4.82 Hgb 14.9 Hct 44.0 MCV 91.3 MCH 30.9 MCHC 33.9 RDW 12.9 Plt Count 330 MPV 10.7 Neut # (Auto) Not Reportable Lymph # (Auto) Not Reportable [place] # (Auto) Not Reportable Eos # (Auto) Not Reportable Baso # (Auto) Not Reportable Absolute Nucleated RBC Not Reportable Total Counted 100 Band Neuts % (Manual) 3 Abnorm Lymph % (Manual) 0 Nucleated RBC % Not Reportable Neutrophils # (Manual) 23.6 H Lymphocytes # (Manual) 1.0 L Monocytes # (Manual) 0.8 Eosinophils # (Manual) 0.0 Basophils # (Manual) 0.0 Differential Comment MANUAL DIFFERENTIAL Platelet Estimate NORMAL (130-450,000) Platelet Morphology 1+ LARGE PLATELETS RBC Morph Micro Appear NORMAL APPEARANCE Sodium 133 L Potassium 4.2 Chloride 98 L Carbon Dioxide 24 Anion Gap 11.0 BUN 11 Creatinine 1.0 Estimated GFR (MDRD) 79 L Glucose 172 H Lactic Acid Calcium 9.3 Total Bilirubin 0.6 AST 18 ALT 29 Alkaline Phosphatase 78 Total Protein 7.4 Albumin 4.3 Globulin 3.1 Albumin/Globulin Ratio 1.4 Lipase 21 L Urine Color YELLOW Urine Clarity CLEAR Urine pH 7.5 Ur Specific [place] 1.010 Urine Protein NEGATIVE Urine Glucose (UA) 100 H Urine Ketones NEGATIVE Urine Occult Blood NEGATIVE Urine Nitrite NEGATIVE Urine Bilirubin NEGATIVE Urine Urobilinogen 0.2 (NORMAL) Ur Leukocyte Esterase NEGATIVE Ur Microscopic Review NOT INDICATED Urine Culture Comments NOT INDICATED 06/28/19 18:36 WBC RBC Hgb Hct MCV MCH MCHC RDW Plt Count MPV Neut # (Auto) Lymph # (Auto) [place] # (Auto) Eos # (Auto) Baso # (Auto) Absolute Nucleated RBC Total Counted Band Neuts % (Manual) Abnorm Lymph % (Manual) Nucleated RBC % Neutrophils # (Manual) Lymphocytes # (Manual) Monocytes # (Manual) Eosinophils # (Manual) Basophils # (Manual) Differential Comment Platelet Estimate Platelet Morphology RBC Morph Micro Appear Sodium Potassium Chloride Carbon Dioxide Anion Gap BUN Creatinine Estimated GFR (MDRD) Glucose Lactic Acid 1.6 Calcium Total Bilirubin AST ALT Alkaline Phosphatase Total Protein Albumin Globulin Albumin/Globulin Ratio Lipase Urine Color Urine Clarity Urine pH Ur Specific [place] Urine Protein Urine Glucose (UA) Urine Ketones Urine Occult Blood Urine Nitrite Urine Bilirubin Urine Urobilinogen Ur Leukocyte Esterase Ur Microscopic Review Urine Culture Comments - Rads (name of study) CT abdomen and pelvis Radiology: Prelim report reviewed, EMP read contemporaneously, See rad report (Diffuse colonic diverticulosis with suggestion of pericolonic fat stranding involving proximal sigmoid colon in left lower quadrant, concerning for acute diverticulitis. No focal drainable fluid collection. No abscess or microperforation. ) PD MEDICAL DECISION MAKING - ED course Complexity details: reviewed results, re-evaluated patient, considered differential, d/w patient, d/w cloud consultant ED course: 49-year-old male presents to the emergency department with diverticulitis. He has a fever. He is tachycardic. Significant leukocytosis. Lactate is normal. Blood cultures drawn. IV fluids and IV antibiotics given. Pain well controlled. No perforation or abscess on CT scan. We will Admit the patient for further care. Discussed the case with Dr. Laughlin, hospitalist who accepts This document was made in part using voice recognition software. While efforts are made to proofread this document, sound alike and grammatical errors may occur. Departure - Departure Disposition: 66 [facility] DC/Xfer Clinical Impression: Tachycardia, Diverticulitis Fever Qualifiers: Fever type: unspecified Qualified Code(s): R50.9 - Fever, unspecified Condition: Stable
[2019-06-28] MEDS ORDERED: IOVERSOL 320 100 ML VIAL IVP ONE ×2 (18:49→19:46)
[2019-06-28 18:52] LABS: BASOPHILS % (AUTO) 0.4 %; MEAN PLATELET VOLUME 10.7 fL (7.4-11.4)
[2019-06-28 18:54] LABS: BILIRUBIN,URINE NEGATIVE (NEGATIVE); GLUCOSE, URINE (UA) 100 mg/dL (NEGATIVE); KETONES,URINE (UA) NEGATIVE (NEGATIVE); LEUKOCYTE ESTERASE, URINE NEGATIVE (NEGATIVE); NITRITE,URINE NEGATIVE (NEGATIVE); OCCULT BLOOD,URINE NEGATIVE (NEGATIVE); PH,URINE 7.5 PH (5.0-7.5); PROTEIN,URINE NEGATIVE (NEGATIVE); UROBILINOGEN,URINE 0.2 (NORMAL) E.U./dL (NORMAL)
[2019-06-28 18:55] LABS: HGB - HEMOGLOBIN 14.9 g/dL (14.0-18.0); LYMPHOCYTES % (AUTO) 5.1 %; MEAN CORPUSCULAR HEMOGLOBIN 30.9 pg (27.0-31.0); MEAN CORPUSCULAR HGB CONC 33.9 g/dL (32.0-36.0); MEAN CORPUSCULAR VOLUME 91.3 fL (80.0-94.0); MONOCYTES % (AUTO) 10.6 %; NEUTROPHILS % (AUTO) 83.2 %; PLT - PLATELET COUNT 330 10^3/uL (130-450); RED BLOOD COUNT 4.82 10^6/uL (4.70-6.10); RED CELL DISTRIBUTION WIDTH 12.9 % (12.0-15.0); WHITE BLOOD COUNT 25.4 x10^3/uL (4.8-10.8)
[2019-06-28 18:58] LABS: CLARITY,URINE CLEAR (CLEAR)
[2019-06-28 18:59] LABS: ABNORMAL LYMPHS % (MANUAL) 0 %
[2019-06-28 19:06] LABS: ALBUMIN 4.3 g/dL (3.2-5.5); ALBUMIN/GLOBULIN RATIO 1.4 (1.0-2.2); BILIRUBIN,TOTAL 0.6 mg/dL (0.2-1.0); CALCIUM 9.3 mg/dL (8.5-10.3); TOTAL PROTEIN 7.4 g/dL (6.7-8.2)
[2019-06-28 19:12] LABS: BAND NEUTROPHILS % (MANUAL) 3 %; LYMPHOCYTES % (MANUAL) 4 %; MONOCYTES # (MANUAL) 0.8 10^3/uL (0.0-1.0)
[2019-06-28 19:13] LABS: DIFFERENTIAL COMMENT MANUAL DIFFERENTIAL; PLATELET ESTIMATE, MANUAL NORMAL (130-450,000) (NORMAL); PLATELET MORPHOLOGY 1+ LARGE PLATELETS (NORMAL); RBC MORPHOLOGY (MULTIPLE) NORMAL APPEARANCE (NORMAL)
--- NOTE | 2019-06-28 20:00 | CT Report ---
Reason: Abdominal pain, acute, nonlocalized Procedure Date: 06/28/2019 Accession Number: [id number] / [id number] Procedure: CT - Abdomen/Pelvis W CPT Code: Final Report FULL RESULT: EXAM: CT ABDOMEN AND PELVIS EXAM DATE: 06/28/2019 07:43 PM. CLINICAL HISTORY: Abdominal pain, acute, nonlocalized. COMPARISONS: ABDOMEN/PELVIS W/ 12/02/2017 5:53 PM. TECHNIQUE: Routine helical CT imaging was performed through the abdomen and pelvis. IV contrast: 75 cc OPTIRAY 320. Enteric contrast: No. Reconstructions: Coronal and sagittal. In accordance with CT protocol optimization, one or more of the following dose reduction techniques were utilized for this exam: automated exposure control, adjustment of mA and/or KV based on patient size, or use of iterative reconstructive technique. FINDINGS: Lung Bases: Unremarkable. Liver: Normal. No masses. Gallbladder/Bile Ducts: A calcified gallstone noted. Spleen: Normal. Pancreas: Normal. Adrenal Glands: Normal. Kidneys: Subcentimeter hypodense lesion in midpole of right kidney, too small to characterize. No masses or hydronephrosis. Peritoneal Cavity/Bowel: Diffuse colonic diverticulosis noted. There is suggestion of pericolonic fat stranding involving proximal sigmoid colon and left lower quadrant (image 69 on series 4). Findings concerning for acute diverticulitis. No focal drainable fluid collection. No abscess or microperforation. The appendix is well visualized and normal. Pelvic Organs: Normal. The bladder and visualized pelvic organs are within normal limits. Vasculature: No aneurysms or other significant abnormality. Bones: No significant abnormality. Other: None. IMPRESSION: Diffuse colonic diverticulosis with suggestion of pericolonic fat stranding involving proximal sigmoid colon in left lower quadrant, concerning for acute diverticulitis. No focal drainable fluid collection. No abscess or microperforation. RADIA
[2019-06-28] MEDS ORDERED: AMPICILLIN/SULBACTAM 3 GM in SODIUM CHLORIDE 0.9% MINIBAG 100 ML IV STA (20:05)
[2019-06-28] MEDS ORDERED: SODIUM CHLORIDE 0.9% 1,000 ML IV ONE (20:05)
[2019-06-28] MEDS ORDERED: metroNIDAZOLE 500 MG/100 ML 500 MG/100 ML BAG IV ONE (20:05)
[2019-06-28] MEDS ORDERED: ONDANSETRON 4 MG/2 ML VIAL IVP PRN (20:17)
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
[2019-06-28] MEDS ORDERED: GABAPENTIN 100 MG CAPSULE PO STA (20:55)
[2019-06-28] MEDS ORDERED: metroNIDAZOLE 500 MG/100 ML 500 MG/100 ML BAG IV SCH (21:00)
[2019-06-28] MEDS ORDERED: SODIUM CHLORIDE 0.9% 500 ML IV ONE (21:01)
[2019-06-28] MEDS: ACETAMINOPHEN 325 MG TABLET PO PRN (21:01)
[2019-06-28] MEDS: METOPROLOL TARTRATE 25 MG TABLET PO SCH (21:25)
[2019-06-28] MEDS: HYDROmorphone 1 MG/ML CARPUJECT IVP PRN (21:46)
[2019-06-28] MEDS: CIPROFLOXACIN 400 MG/200 ML 400 MG/200 ML BAG IV SCH (22:03)
[2019-06-28] MEDS: SODIUM CHLORIDE 0.9% 1,000 ML IV SCH (22:04)
[2019-06-28] MEDS: NICOTINE 14 MG PATCH TOP SCH (22:58)
[2019-06-29] MEDS: HYDROmorphone 1 MG/ML CARPUJECT IVP PRN ×2 (00:43→04:50)
[2019-06-29] MEDS: SODIUM CHLORIDE FLUSH 0.9% 10 ML SYRINGE IVP SCH ×4 (02:07→23:38)
[2019-06-29] MEDS: ACETAMINOPHEN 325 MG TABLET PO PRN ×4 (02:59→23:42)
[2019-06-29] MEDS: SODIUM CHLORIDE 0.9% 1,000 ML IV SCH ×2 (03:20→12:05)
[2019-06-29] MEDS: metroNIDAZOLE 500 MG/100 ML 500 MG/100 ML BAG IV SCH ×3 (04:41→21:58)
[2019-06-29 05:21] LABS: BASOPHILS % (AUTO) 0.3 %; EOSINOPHILS % (AUTO) 0.2 %; HGB - HEMOGLOBIN 13.6 g/dL (14.0-18.0); LYMPHOCYTES % (AUTO) 13.8 %; MEAN CORPUSCULAR HEMOGLOBIN 30.8 pg (27.0-31.0); MEAN CORPUSCULAR HGB CONC 32.9 g/dL (32.0-36.0); MEAN CORPUSCULAR VOLUME 93.7 fL (80.0-94.0); MEAN PLATELET VOLUME 10.4 fL (7.4-11.4); MONOCYTES % (AUTO) 10.2 %; NEUTROPHILS % (AUTO) 74.8 %; PLT - PLATELET COUNT 289 10^3/uL (130-450); RED BLOOD COUNT 4.41 10^6/uL (4.70-6.10); RED CELL DISTRIBUTION WIDTH 13.2 % (12.0-15.0); WHITE BLOOD COUNT 17.2 x10^3/uL (4.8-10.8)
[2019-06-29 05:37] LABS: ABNORMAL LYMPHS % (MANUAL) 0 %; BAND NEUTROPHILS % (MANUAL) 0 %
[2019-06-29 05:55] LABS: CALCIUM 8.6 mg/dL (8.5-10.3); CREATININE 0.8 mg/dL (0.6-1.2)
[2019-06-29] MEDS: PANTOPRAZOLE 40 MG VIAL IVP SCH (06:19)
[2019-06-29] MEDS: SODIUM CHLORIDE FLUSH 0.9% 10 ML SYRINGE IVP PRN (06:23)
[2019-06-29 06:26] LABS: LYMPHOCYTES # (MANUAL) 2.6 10^3/uL (1.5-3.5); LYMPHOCYTES % (MANUAL) 15 %; MONOCYTES # (MANUAL) 1.2 10^3/uL (0.0-1.0); PLATELET ESTIMATE, MANUAL NORMAL (130-450,000) (NORMAL); PLATELET MORPHOLOGY NORMAL APPEARANCE (NORMAL); RBC MORPHOLOGY (MULTIPLE) NORMAL APPEARANCE (NORMAL)
[2019-06-29 06:27] LABS: DIFFERENTIAL COMMENT MANUAL DIFFERENTIAL
--- NOTE | 2019-06-29 07:24 | PROVIDER PROGRESS NOTE ---
Subjective - Prog Note Date Prog Note Date: 06/29/19 - Subjective Subjective: He reports feeling better today. He still has some abdominal pain is left lower quadrant. He also complains of nausea but no vomiting. He would like to try a diet today. Current Medications - Current Medications Current Medications: Active Medications Acetaminophen (Tylenol) 650 mg PO Q6HR PRN PRN Reason: Pain 1 to 4 Last Admin: 06/29/19 02:59 Dose: 650 mg Gabapentin (Neurontin) 100 mg PO QPM [facility] Hydromorphone HCl (Dilaudid Inj Carp) 1 mg IVP Q3HR PRN PRN Reason: PAIN Last Admin: 06/29/19 04:50 Dose: 1 mg Sodium Chloride (Normal Saline 0.9%) 1,000 mls @ 125 mls/hr IV .Q8H [facility] Last Infusion: 06/29/19 05:41 Dose: 125 mls/hr Ciprofloxacin (Cipro 400 Mg/200 Ml) 400 mg in 200 mls @ 200 mls/hr IV Q12H [facility] Last Infusion: 06/28/19 23:04 Dose: Infused Metronidazole (Flagyl 500 Mg/100 Ml) 500 mg in 100 mls @ 100 mls/hr IV Q8H [facility] Last Infusion: 06/29/19 05:41 Dose: Infused Metoprolol Tartrate (Lopressor) 25 mg PO BID [facility] Last Admin: 06/28/19 21:25 Dose: 25 mg Nicotine (Nicoderm) 1 patch TOP DAILY [facility] Last Admin: 06/28/19 22:58 Dose: 1 patch Ondansetron HCl (Zofran Inj) 4 mg IVP Q6HR PRN PRN Reason: Nausea / Vomiting Last Admin: 06/29/19 00:43 Dose: 4 mg Oxycodone HCl (Roxicodone) 5 mg PO Q4HR PRN PRN Reason: PAIN Pantoprazole Sodium (Protonix) 40 mg IVP QDAC [facility] Last Admin: 06/29/19 06:19 Dose: 40 mg Risperidone (Risperdal) 1.5 mg PO DAILY [facility] Sodium Chloride (Normal Saline Flush 0.9%) 10 ml IVP PRN PRN PRN Reason: NEEDED PER PROVIDER ORDERS Last Admin: 06/29/19 06:23 Dose: 10 ml Sodium Chloride (Normal Saline Flush 0.9%) 10 ml IVP 0100,0900,1700 [facility] Last Admin: 06/29/19 02:07 Dose: Not Given Trazodone HCl (Desyrel) 100 mg PO QPM [facility] Divalproex Sodium [Depakote] 500 mg PO BID 10/21/17 Divalproex Sodium [Depakote] 750 mg PO QPM 10/21/17 Metoprolol Tartrate 25 mg PO BID 10/21/17 Trazodone HCl 150 mg PO QPM 10/21/17 risperiDONE [Risperdal] 1 mg PO DAILY 10/21/17 Objective - Vital Signs/Intake & Output Reviewed Vital Signs: Yes Vital Signs: Vital Signs x48h Temp Pulse Resp BP Pulse Ox 06/29/19 02:55 37.1 C 114 H 18 149/95 H 95 06/28/19 23:47 37.2 C 101 H 18 156/98 H 95 Intake & Output: Intake & Output 06/26/19 06/27/19 06/28/19 06/29/19 23:59 23:59 23:59 23:59 Intake Total 2102.5 1268.75 Output Total 450 950 Balance 1652.5 318.75 - Objective General Appearance: positive: No acute distress, Alert Eyes Bilateral: positive: Normal inspection ENT: positive: ENT inspection nml Neck: positive: Nml inspection Respiratory: positive: No respiratory distress. negative: Wheezes, Rales, Rhonchi Cardiovascular: positive: No murmur, Tachycardia. negative: Irregularly irregular, Bradycardia, Systolic murmur, Diastolic murmur Abdomen: positive: Nml bowel sounds, No distention, Tenderness (Tenderness in the left lower quadrant.). negative: Non-tender, Guarding, Rebound Skin: positive: Warm, Dry Extremities: positive: Full ROM, No pedal edema Neurologic/Psychiatric: positive: Oriented x3, Motor nml. negative: Disoriented to person, Disoriented to place, Disoriented to time - Lab Results Fish Bones: 06/29/19 05:06 06/29/19 05:06 Other Labs: Lab Results x24hrs 06/29/19 06/29/19 06/28/19 Range/Units 05:06 05:06 18:36 WBC 17.2 H (4.8-10.8) x10^3/uL RBC 4.41 L (4.70-6.10) 10^6/uL Hgb 13.6 L (14.0-18.0) g/dL Hct 41.3 L (42.0-52.0) % MCV 93.7 (80.0-94.0) fL MCH 30.8 (27.0-31.0) pg MCHC 32.9 (32.0-36.0) g/dL RDW 13.2 (12.0-15.0) % Plt Count 289 (130-450) 10^3/uL MPV 10.4 (7.4-11.4) fL Neut # (Auto) Not Reportable Lymph # (Auto) Not Reportable [place] # (Auto) Not Reportable Eos # (Auto) Not Reportable Baso # (Auto) Not Reportable Absolute Nucleated RBC Not Reportable Total Counted 100 Band Neuts % (Manual) 0 (0 - 10) % Abnorm Lymph % (Manual) 0 % Nucleated RBC % Not Reportable Neutrophils # (Manual) 13.4 H (1.5-6.6) 10^3/uL Lymphocytes # (Manual) 2.6 (1.5-3.5) 10^3/uL Monocytes # (Manual) 1.2 H (0.0-1.0) 10^3/uL Eosinophils # (Manual) 0.0 (0-0.7) 10^3/uL Basophils # (Manual) 0.0 (0-0.1) 10^3/uL Differential Comment MANUAL DIFFERENTIAL WBC Morphology NORMAL APPEARANCE (NORMAL) Platelet Estimate NORMAL (130-450,000) (NORMAL) Platelet Morphology NORMAL APPEARANCE (NORMAL) RBC Morph Micro Appear NORMAL APPEARANCE (NORMAL) Sodium 136 (135-145) mmol/L Potassium 3.9 (3.5-5.0) mmol/L Chloride 102 (101-111) mmol/L Carbon Dioxide 25 (21-32) mmol/L Anion Gap 9.0 (6-13) BUN 11 (6-20) mg/dL Creatinine 0.8 (0.6-1.2) mg/dL Estimated GFR (MDRD) 103 (>89) Glucose 140 H (70-100) mg/dL Lactic Acid 1.6 (0.5-2.2) mmol/L Calcium 8.6 (8.5-10.3) mg/dL Total Bilirubin (0.2-1.0) mg/dL AST (10-42) IU/L ALT (10-60) IU/L Alkaline Phosphatase (42-121) IU/L Total Protein (6.7-8.2) g/dL Albumin (3.2-5.5) g/dL Globulin (2.1-4.2) g/dL Albumin/Globulin Ratio (1.0-2.2) Lipase (22-51) U/L Urine Color Urine Clarity (CLEAR) Urine pH (5.0-7.5) PH Ur Specific [place] (1.002-1.030) Urine Protein (NEGATIVE) mg/dL Urine Glucose (UA) (NEGATIVE) mg/dL Urine Ketones (NEGATIVE) mg/dL Urine Occult Blood (NEGATIVE) Urine Nitrite (NEGATIVE) Urine Bilirubin (NEGATIVE) Urine Urobilinogen (NORMAL) E.U./dL Ur Leukocyte Esterase (NEGATIVE) Ur Microscopic Review Urine Culture Comments 06/28/19 06/28/19 06/28/19 Range/Units 18:35 18:35 18:35 WBC 25.4 H (4.8-10.8) x10^3/uL RBC 4.82 (4.70-6.10) 10^6/uL Hgb 14.9 (14.0-18.0) g/dL Hct 44.0 (42.0-52.0) % MCV 91.3 (80.0-94.0) fL MCH 30.9 (27.0-31.0) pg MCHC 33.9 (32.0-36.0) g/dL RDW 12.9 (12.0-15.0) % Plt Count 330 (130-450) 10^3/uL MPV 10.7 (7.4-11.4) fL Neut # (Auto) Not Reportable Lymph # (Auto) Not Reportable [place] # (Auto) Not Reportable Eos # (Auto) Not Reportable Baso # (Auto) Not Reportable Absolute Nucleated RBC Not Reportable Total Counted 100 Band Neuts % (Manual) 3 (0 - 10) % Abnorm Lymph % (Manual) 0 % Nucleated RBC % Not Reportable Neutrophils # (Manual) 23.6 H (1.5-6.6) 10^3/uL Lymphocytes # (Manual) 1.0 L (1.5-3.5) 10^3/uL Monocytes # (Manual) 0.8 (0.0-1.0) 10^3/uL Eosinophils # (Manual) 0.0 (0-0.7) 10^3/uL Basophils # (Manual) 0.0 (0-0.1) 10^3/uL Differential Comment MANUAL DIFFERENTIAL WBC Morphology (NORMAL) Platelet Estimate NORMAL (130-450,000) (NORMAL) Platelet Morphology 1+ LARGE PLATELETS (NORMAL) RBC Morph Micro Appear NORMAL APPEARANCE (NORMAL) Sodium 133 L (135-145) mmol/L Potassium 4.2 (3.5-5.0) mmol/L Chloride 98 L (101-111) mmol/L Carbon Dioxide 24 (21-32) mmol/L Anion Gap 11.0 (6-13) BUN 11 (6-20) mg/dL Creatinine 1.0 (0.6-1.2) mg/dL Estimated GFR (MDRD) 79 L (>89) Glucose 172 H (70-100) mg/dL Lactic Acid (0.5-2.2) mmol/L Calcium 9.3 (8.5-10.3) mg/dL Total Bilirubin 0.6 (0.2-1.0) mg/dL AST 18 (10-42) IU/L ALT 29 (10-60) IU/L Alkaline Phosphatase 78 (42-121) IU/L Total Protein 7.4 (6.7-8.2) g/dL Albumin 4.3 (3.2-5.5) g/dL Globulin 3.1 (2.1-4.2) g/dL Albumin/Globulin Ratio 1.4 (1.0-2.2) Lipase 21 L (22-51) U/L Urine Color YELLOW Urine Clarity CLEAR (CLEAR) Urine pH 7.5 (5.0-7.5) PH Ur Specific [place] 1.010 (1.002-1.030) Urine Protein NEGATIVE (NEGATIVE) mg/dL Urine Glucose (UA) 100 H (NEGATIVE) mg/dL Urine Ketones NEGATIVE (NEGATIVE) mg/dL Urine Occult Blood NEGATIVE (NEGATIVE) Urine Nitrite NEGATIVE (NEGATIVE) Urine Bilirubin NEGATIVE (NEGATIVE) Urine Urobilinogen 0.2 (NORMAL) (NORMAL) E.U./dL Ur Leukocyte Esterase NEGATIVE (NEGATIVE) Ur Microscopic Review NOT INDICATED Urine Culture Comments NOT INDICATED ABX Reporting Has patient been on IV antibiotics over the past 48 hours?: Yes Sepsis Event Note (H) - Evaluation Current Stage of Sepsis: Sepsis Possible source of Sepsis: positive: GI tract/intra-abdominal - Sepsis Criteria Sepsis Criteria: Recorded Temperature greater than 38.3C or Less than 36C, Recorded Heart Rate greater than 90 bpm, WBC count greater than 12,000 or less than 4000 Assessment/Plan - Problem List (1) Sepsis Impression: This is secondary to the diverticulitis. He presented with fever, tachycardia, leukocytosis. Fortunately his lactic acid is normal and he is not hypotensive. His sepsis is improving as his white count decreases and his tachycardia improves. We will continue ciprofloxacin and Flagyl IV to treat his diverticulitis. Follow-up blood cultures. (2) Diverticulitis Impression: This is the source of his sepsis and is improving. Continues to have nausea and abdominal pain but this is improved. His white count is also improving. We will continue with ciprofloxacin and Flagyl IV. We will start him on a clear liquid diet for lunch and advance as tolerated. Continue with Dilaudid and oxycodone as needed for pain. Zofran as needed for nausea. If he tolerates a clear liquid diet, then we will advance his diet for dinner. We will keep him on IV antibiotics for 1 more day and as long as his white count continues to improve tomorrow and he remains afebrile, he can likely be discharged on oral antibiotics. He will benefit from an outpatient colonoscopy in 6 to 8 weeks. (3) Bipolar disorder Impression: Stable. We will continue his risperidone and Depakote. (4) Hypertension Impression: He was hypertensive on admission and this morning his systolics in the 130s. We will continue his home metoprolol.
[2019-06-29] MEDS: oxyCODONE 5 MG TABLET PO PRN ×4 (08:28→23:43)
[2019-06-29] MEDS: METOPROLOL TARTRATE 25 MG TABLET PO SCH ×2 (08:28→20:49)
[2019-06-29] MEDS: NICOTINE 14 MG PATCH TOP SCH (08:29)
[2019-06-29] MEDS: CIPROFLOXACIN 400 MG/200 ML 400 MG/200 ML BAG IV SCH ×2 (08:29→20:48)
[2019-06-29] MEDS: risperiDONE 1 MG TABLET PO SCH (08:30)
--- NOTE | 2019-06-29 10:12 | PHARMACY PROGRESS NOTE ---
- Best Possible Medication History Admit Date and Time: 06/28/192016 Processed by: Pharmacy Medication History completed: Yes Patient Interview: Completed Secondary Source(s): Written medication list, Other family member (PATIENT HAS LIST OF MEDICATIONS; UNCLEAR OF THE DIVALPROEX DOSING) As the person ultimately responsible for medication therapy, providers are able to order a medication from an existing home medication list in [facility] via the "Reconcile Routine" prior to Confirmation of that medication by product support specialist. Such practice is discouraged except when the physician, in their clinical judgment, deems that a medical need exists for a medication without regard to previous use.
[2019-06-29] MEDS ORDERED: GABAPENTIN 100 MG CAPSULE PO SCH (21:00)
[2019-06-29] MEDS ORDERED: DIVALPROEX ER 250 MG TABLET PO SCH (21:00)
[2019-06-29] MEDS ORDERED: traZODone 50 MG TABLET PO SCH (21:00)
[2019-06-29] MEDS ORDERED: DIVALPROEX SODIUM 750 MG PO SCH (21:00)
[2019-06-30] MEDS: metroNIDAZOLE 500 MG/100 ML 500 MG/100 ML BAG IV SCH (05:10)
[2019-06-30] MEDS: SODIUM CHLORIDE FLUSH 0.9% 10 ML SYRINGE IVP PRN ×2 (05:10→06:39)
[2019-06-30 05:44] LABS: BASOPHILS % (AUTO) 0.3 %; EOSINOPHILS # (AUTO) 0.1 10^3/uL (0.0-0.7); EOSINOPHILS % (AUTO) 0.8 %; HGB - HEMOGLOBIN 13.1 g/dL (14.0-18.0); LYMPHOCYTES # (AUTO) 2.4 10^3/uL (1.5-3.5); LYMPHOCYTES % (AUTO) 25.8 %; MEAN CORPUSCULAR HEMOGLOBIN 31.9 pg (27.0-31.0); MEAN CORPUSCULAR HGB CONC 33.1 g/dL (32.0-36.0); MEAN CORPUSCULAR VOLUME 96.4 fL (80.0-94.0); MEAN PLATELET VOLUME 10.6 fL (7.4-11.4); NEUTROPHILS # (AUTO) 5.7 10^3/uL (1.5-6.6); NEUTROPHILS % (AUTO) 61.8 %; PLT - PLATELET COUNT 260 10^3/uL (130-450); RED BLOOD COUNT 4.11 10^6/uL (4.70-6.10); RED CELL DISTRIBUTION WIDTH 13.2 % (12.0-15.0); WHITE BLOOD COUNT 9.2 x10^3/uL (4.8-10.8)
[2019-06-30 05:55] LABS: CALCIUM 8.7 mg/dL (8.5-10.3); CREATININE 0.9 mg/dL (0.6-1.2)
[2019-06-30 06:02] LABS: HB2 TOTAL 14.2 g/dL; HEMOGLOBIN A1C 0.69 g/dL; HEMOGLOBIN A1C % 6.6 % (4.6-6.2)
[2019-06-30] MEDS: PANTOPRAZOLE 40 MG VIAL IVP SCH (06:39)
[2019-06-30] MEDS ORDERED: GABAPENTIN 100 MG CAPSULE PO PRN (07:08)
[2019-06-30] MEDS: risperiDONE 1 MG TABLET PO SCH (08:08)
[2019-06-30] MEDS: ACETAMINOPHEN 325 MG TABLET PO PRN (08:09)
[2019-06-30] MEDS: METOPROLOL TARTRATE 25 MG TABLET PO SCH (08:09)
[2019-06-30] MEDS: NICOTINE 14 MG PATCH TOP SCH (08:10)
[2019-06-30] MEDS: SODIUM CHLORIDE FLUSH 0.9% 10 ML SYRINGE IVP SCH (08:11)
[2019-06-30] MEDS: CIPROFLOXACIN 400 MG/200 ML 400 MG/200 ML BAG IV SCH (08:11)
[2019-06-30] MEDS ORDERED: risperiDONE 1 MG TABLET PO SCH (09:00)
[2019-06-30] MEDS ORDERED: polyethylene glycoL 3350 17 GM PACKET PO SCH (09:00)
[2019-06-30] MEDS ORDERED: CIPROFLOXACIN 250 MG TABLET PO SCH ×2 (09:00→21:00)
--- NOTE | 2019-06-30 10:09 | Discharge Plan ---
Discharge Plan Problem Reviewed?: Yes Disposition: Home, Self Care Condition: Stable Prescriptions: oxyCODONE [Roxicodone] 5 mg PO Q4HR PRN #20 tablet PRN Reason: Pain Ciprofloxacin [Cipro] 500 mg PO BID #10 tablet metroNIDAZOLE [Flagyl] 500 mg PO Q8H #15 tablet Diet: Diabetic Activity Restrictions: Activity as Tolerated Shower Restrictions: No (fall precaution) Instruction Topics: Metronidazole injection, Ciprofloxacin injection, Oxycodone tablets or capsules, Hyperglycemia, Diabetes Type 2 Coping, Sepsis Dc, Diverticulitis Dc Health Concerns: diverticulitis, diabetes Plan of Treatment: You tolerate the regular diet, your abdominal pain is controlled. Two antibiotics Cipro and Flagyl are prescribed to finish the treatment course. Your A1C is 6.6 now. You were not diagnosis as diabetes before. We Discussed about the care plan. you agreed to do life style changing including, but not limited, loss of weight, control of glucose intake, exercise, do not initiate the medication treatment now, and followup your PCP to continue test and management of your Diabetes, Care Goals: stabilization and improvement/resolved of your medical conditions. Assessment: discussed with you about the care plan, you understood and agreed. Additional Instructions or Follow Up instructions: you may followup your PCP in one to two weeks. Should your symptoms return or worsen, you may present ER or call 911 for help. Follow-Up Care: [facility] - Diabetes Ed No Smoking: If you smoke, Please STOP! Call for help. Follow-up with: Juan R Romano PA-C [Primary Care Provider] -
--- NOTE | 2019-06-30 10:27 | DISCHARGE SUMMARY ---
Discharge Summary Admit Date: 06/28/19 Discharge Date: 06/30/19 Discharging Provider: Carlton Platt Primary Care Provider: Dr. Juan R Romano Condition at Discharge: Stable Discharge Disposition: 01 Home, Self Care Discharge Facility Name: home - DIAGNOSES Admission Diagnoses: (1) Diverticulitis (2) Hypertension (3) Bipolar disorder Discharge Diagnoses with Status of Each Condition: (1) Sepsis Resolved. at admission patient presented tachycardia, fever, elevated WBC. patient presented sepsis. After the treatment patient have no fever, WBC become normal no tachycardia, blood culture come back negative. Patient is prescribed f or antibiotics Cipro and Flagyl. (2) Diverticulitis resolved/control. after treatment patient's abdominal pain was controlled, pt had no fever. patient tolerated regular diet, no nausea, no vomiting, patient also have a bowel movement. Patient is prescribed antibiotics, will continue finishing the treatment (3) Bipolar disorder Stable, continue home medication and regimen (4) Hypertension stable (5)DM2 Patient has A1c at 6.7. he declined her medication treatment right now and he will follow advise, lost weight, exercise, glucose control, and to follow-up PCP for management and have test to monitor. Patient agreed care plan - [facility] History of Present Illness: refer from Dr. Vogel's HPI on Patient is a 49-year-old male with medical history significant for bipolar disorder, anxiety, depression and hypertension who presented to the ED with com plaint of left lower quadrant abdominal pain with radiation across his entire lower abdomen. The pain was sharp in nature. He rated it 8 out of 10 pain scale at onset. Currently the pain is 3 out of 10. He denied nausea or vomiting. His symptoms started yesterday. He reported a feeling of bloating and a need to empty his bowels. Though he was unable to. His last bowel movement was this morning. He denied chest pain, or dyspnea. In the ED he was found to have a temperature of 38.1 C, heart rate as high as 145 and a white blood cell count of 25.4. A CT scan of the abdomen/pelvis was a lso done and showed acute diverticulitis. There was fat stranding noted in the left lower quadrant. No perforation was noted. He had a previous occurrence of diverticulitis in 2018. He is being admitted for further management. - HOSPITAL COURSE Hospital Course: Patient is admitted for abdominal pain and fever. patient was found to have diverticulitis. patient was treated with antibiotics. after the treatment patient had no fever. patient's WBC become normal. patient blood culture came back negative for bacteremia. patient tolerated regular diet, pt's abdominal pain is controlled, no nausea, no vomiting. patient was prescript antibiotics and go home. Hospital course in detail is as below (1) Sepsis Resolved. at admission patient presented tachycardia, fever, elevated WBC. patient presented sepsis. After the treatment patient have no fever, WBC become normal no tachycardia, blood culture come back negative. Patient is prescribed for antibiotics Cipro and Flagyl. (2) Diverticulitis resolved/control. after treatment patient's bdominal pain was controlled. no fever. patient tolerated regular diet, no nausea, no vomiting, patient also have a gas passed. Patient is prescribed antibiotics, will continue finishing the treatment (3) Bipolar disorder Stable, continue home medication and regimen (4) Hypertension stable (5)DM2 Patient has A1c at 6.7. he declined her medication treatment right now and he will follow advise, lost weight, exercise, glucose control, and to follow-up PCP for management and have test to monitor. Patient agreed the care plan - ALLERGIES Allergies/Adverse Reactions: Allergies Allergy/AdvReac Type Severity Reaction Status Date / Time chlordiazepoxide Allergy Anaphylaxis Verified 06/28/19 18:41 [From Librax (with clidinium)] clidinium Allergy Anaphylaxis Verified 06/28/19 18:41 [From Librax (with clidinium)] haloperidol [From Haldol] Allergy Itching Verified 08/30/18 13:35 varenicline [From Chantix] Allergy Dizziness Verified 08/30/18 13:35 - MEDICATIONS Home Medications: Ambulatory Orders Medication Instructions Recorded Confirmed Metoprolol Tartrate 25 mg PO BID 10/21/17 06/29/19 risperiDONE [Risperdal] 1.5 mg PO DAILY 10/21/17 06/29/[address] [Voltaren] 75 mg PO PRN PRN 06/29/19 06/29/19 Divalproex Sodium [Depakote ER] 2,000 mg PO QPM 06/29/19 06/29/19 Fluticasone [Flonase] 1 spray DORI PRN PRN 06/29/19 06/29/19 Gabapentin [Neurontin] 100 - 200 mg PO PRN PRN 06/29/19 06/29/19 Sildenafil Citrate 50 mg PO PRN PRN 06/29/19 06/29/19 Trazodone HCl 100 mg PO QPM 06/29/19 06/29/19 Ciprofloxacin [Cipro] 500 mg PO BID #10 tablet 06/30/19 metroNIDAZOLE [Flagyl] 500 mg PO Q8H #15 tablet 06/30/19 oxyCODONE [Roxicodone] 5 mg PO Q4HR PRN #20 tablet 06/30/19 - PHYSICAL EXAM AT DISCHARGE General Appearance: positive: No acute distress, Alert. negative: Lethargic Eyes Bilateral: positive: Normal inspection, PERRL, No lid inflammation ENT: positive: ENT inspection nml, Pharynx nml, No signs of dehydration. negative: Purulent nasal drainage Neck: positive: Nml inspection, Thyroid nml, No JVD, Trachea midline. negative: Thyromegaly, Stiff neck, Tracheal deviation Respiratory: positive: Chest non-tender, No respiratory distress, Breath sounds nml. negative: Wheezes, Rales, Rhonchi Cardiovascular: positive: Regular rate & rhythm, No gallop. negative: Irregularly irregular, Tachycardia, Bradycardia, JVD present, Systolic murmur, Diastolic murmur Peripheral Pulses: positive: 2+ Abdomen: positive: Non-tender, No organomegaly, Nml bowel sounds, No distention. negative: Tenderness, Guarding, Rebound Back: positive: Nml inspection. negative: CVA tenderness (R), CVA tenderness (L) Skin: positive: Color nml, No rash, Warm, Dry. negative: Cyanosis, Diaphoresis, Pallor Extremities: positive: Non-tender, Full ROM, Nml appearance. negative: Calf tenderness, Donna's sign/cords Neurologic/Psychiatric: positive: Oriented x3, Motor nml, Sensation nml, Mood/affect nml. negative: Weakness, Sensory loss, Facial droop, Slurred/abnml speech, Depressed mood/affect - LABS Result Diagrams: 06/30/19 05:16 06/30/19 05:16 - SEPSIS Current Stage of Sepsis: Sepsis Possible source of Sepsis: GI tract/intra-abdominal Sepsis Criteria: Recorded Temperature greater than 38.3C or Less than 36C, Recorded Heart Rate greater than 90 bpm, WBC count greater than 12,000 or less than 4000 - FOLLOW UP Follow Up: You tolerate the regular diet, your abdominal pain is controlled. Two antibiotics Cipro and Flagyl are prescribed to finish the treatment course. Your A1C is 6.6 now. You were not diagnosis as diabetes before. We Discussed about the care plan. you agreed to do life style changing including, but not limited, loss of weight, control of glucose intake, exercise, do not initiate the medication treatment now, and followup your PCP to continue test and management of your Diabetes. you may followup your PCP in one to two weeks. Should your symptoms return or worsen, you may present ER or call 911 for help. - TIME SPENT Time Spent in Discharge (Minutes): 30
[2019-06-30 11:17] VITALS: BP 130/86
[2019-06-30] MEDS ORDERED: metroNIDAZOLE 250 MG TABLET PO SCH (13:00)
== END 2019-06-30 11:22 | disposition home or self-care (01) | DRG 872 ==
LOC: ED 18:17 → MS2 20:17
PROVIDERS: ADMIT Internal Medicine; ATTEND Nurse Practitioner Gerontology
DX: A41.9 Sepsis, unspecified organism (principal); K57.32 Diverticulitis of large intestine without perforation or abscess without bleeding; E11.9 Type 2 diabetes mellitus without complications; I10 Essential (primary) hypertension; E78.00 Pure hypercholesterolemia, unspecified; F17.210 Nicotine dependence, cigarettes, uncomplicated; F31.9 Bipolar disorder, unspecified; F20.9 Schizophrenia, unspecified; F41.0 Panic disorder [episodic paroxysmal anxiety]; H54.7 Unspecified visual loss; F10.11 Alcohol abuse, in remission; Z91.5 Personal history of self-harm; Z79.899 Other long term (current) drug therapy
CPT/HCPCS: 36415; 74177; 80048; 80053; 81003; 83036; 83605; 83690; 85025; 87040; 96361; 96374; 99285; A9270; J1170; Q9967; 81001; 87086

== ENCOUNTER 2019-07-09 13:30 | Outpatient (CLI) | payer MEDICAID ==
[2019-07-09 18:29] LABS: BILIRUBIN,URINE NEGATIVE (NEGATIVE); GLUCOSE, URINE (UA) 250 mg/dL (NEGATIVE); KETONES,URINE (UA) NEGATIVE (NEGATIVE); LEUKOCYTE ESTERASE, URINE NEGATIVE (NEGATIVE); NITRITE,URINE NEGATIVE (NEGATIVE); OCCULT BLOOD,URINE NEGATIVE (NEGATIVE); PROTEIN,URINE NEGATIVE (NEGATIVE); UROBILINOGEN,URINE 0.2 (NORMAL) E.U./dL (NORMAL)
[2019-07-09 18:30] LABS: CLARITY,URINE CLEAR (CLEAR)
== END 2019-07-09 23:59 | disposition home or self-care (01) ==
LOC: LAB.WCP 13:30
PROVIDERS: ATTEND Family Medicine
DX: R35.0 Frequency of micturition (principal)
CPT/HCPCS: 36415; 81001; 81003; 84153; 87086

== ENCOUNTER 2019-08-01 12:15 | Observation (INO) | payer MEDICAID ==
[2019-08-01] MEDS ORDERED: MORPHINE 2 MG/ML CARPUJECT IVP STA ×2 (12:37→14:23)
[2019-08-01 12:38] LABS: BASOPHILS # (AUTO) 0.1 10^3/uL (0.0-0.1); BASOPHILS % (AUTO) 0.5 %; EOSINOPHILS # (AUTO) 0.1 10^3/uL (0.0-0.7); EOSINOPHILS % (AUTO) 0.5 %; HGB - HEMOGLOBIN 14.9 g/dL (14.0-18.0); LYMPHOCYTES # (AUTO) 2.6 10^3/uL (1.5-3.5); LYMPHOCYTES % (AUTO) 18.3 %; MEAN CORPUSCULAR HEMOGLOBIN 31.9 pg (27.0-31.0); MEAN CORPUSCULAR HGB CONC 34.3 g/dL (32.0-36.0); MEAN CORPUSCULAR VOLUME 92.9 fL (80.0-94.0); MEAN PLATELET VOLUME 10.7 fL (7.4-11.4); MONOCYTES # (AUTO) 1.3 10^3/uL (0.0-1.0); MONOCYTES % (AUTO) 9.3 %; NEUTROPHILS % (AUTO) 70.9 %; PLT - PLATELET COUNT 256 10^3/uL (130-450); RED BLOOD COUNT 4.67 10^6/uL (4.70-6.10); RED CELL DISTRIBUTION WIDTH 13.4 % (12.0-15.0); WHITE BLOOD COUNT 14.1 x10^3/uL (4.8-10.8)
--- NOTE | 2019-08-01 12:39 | ED Physician Documentation ---
PD HPI ABD PAIN - Stated complaint Stated Complaint: SOA,ABD PX - Chief complaint Chief Complaint: Abd Pain - History obtained from History obtained from: Patient (49-year-old gentleman with history of diabetes, mental illness and recurrent diverticulitis presents with right-sided abdominal pain that started suddenly after eating a burrito last night and has been constant since. Pain is worse if he takes a deep breath. Feels like diverti culitis has had in the past but it is on the alternate side. No fevers. Very mild nausea.) Review of Systems Ten Systems: 10 systems reviewed and negative Constitutional: denies: Fever, Chills Cardiac: denies: Chest pain / pressure, Palpitations, Pedal edema, Calf pain Respiratory: denies: Hemoptysis, Wheezing PD PAST MEDICAL HISTORY - Past Medical History Cardiovascular: Hypertension, High cholesterol Respiratory: None Endocrine/Autoimmune: Type 2 diabetes GI: Diverticulitis : None HEENT: Chronic vision loss Psych: Depression, Anxiety, Bipolar disorder, Schizophrenia, Panic attacks, Other Musculoskeletal: None Derm: None - Past Surgical History Past Surgical History: No Ortho: Carpal Tunnel surgery - Present Medications Home Medications: Ambulatory Orders Medication Instructions Recorded Confirmed Metoprolol Tartrate 25 mg PO BID 10/21/17 08/01/19 risperiDONE [Risperdal] 1 mg PO QPM 10/21/17 08/01/19 Divalproex Sodium [Depakote ER] 2,000 mg PO QPM 06/29/19 08/01/19 Fluticasone [Flonase] 1 spray DORI BID 06/29/19 08/01/19 Trazodone HCl 100 - 200 mg PO QPM 06/29/19 08/01/19 Metformin HCl 1,000 mg PO BIDWM 07/31/19 08/01/[address] [Voltaren] 75 mg PO BID 08/01/19 08/01/19 Gabapentin 100 mg PO BID 08/01/19 08/01/19 risperiDONE [Risperdal] 1.5 mg PO DAILY 08/01/19 08/01/19 - Allergies Allergies/Adverse Reactions: Allergies Allergy/AdvReac Type Severity Reaction Status Date / Time chlordiazepoxide Allergy Anaphylaxis Verified 06/28/19 18:41 [From Librax (with clidinium)] clidinium Allergy Anaphylaxis Verified 06/28/19 18:41 [From Librax (with clidinium)] haloperidol [From Haldol] Allergy Itching Verified 08/30/18 13:35 [email or web address] [From Chantix] Allergy Dizziness Verified 08/30/18 13:35 - Social History Does the pt smoke?: Yes Smoking Status: Current every day smoker Does the pt drink ETOH?: No Does the pt have substance abuse?: No - Immunizations Immunizations are current?: Yes - POLST Patient has POLST: No POLST Status: Full Code PD ED PE NORMAL - Vitals Vital signs reviewed: Yes - General General: Alert and oriented X 3, No acute distress - HEENT HEENT: PERRL, EOMI - Neck Neck: Supple, no meningeal sign, No bony TTP - Cardiac Cardiac: RRR, No murmur - Respiratory Respiratory: No respiratory distress, Clear bilaterally - Abdomen Abdomen: Normal bowel sounds, Soft, Other (Tender to the right side with positive Wheat sign, but also has right lower quadrant tenderness.) - Back Back: No CVA TTP, No spinal TTP - Derm Derm: Normal color, Warm and dry - Extremities Extremities: No edema, No calf tenderness / cord - Neuro Neuro: Alert and oriented X 3, No motor deficit, No sensory deficit, Normal speech Results - Vitals Vitals: Vital Signs - 24 hr 08/01/19 08/01/19 08/01/19 12:22 14:32 16:00 Temperature 36.6 C Heart Rate 102 H 94 99 Respiratory 20 16 18 Rate Blood Pressure 135/73 H 138/89 H 149/98 H O2 Saturation 97 96 96 Oxygen O2 Source Room air - EKG (time done) 1642 Rate: Rate (enter#) (102) Rhythm: Sinus tachycardia [place]: Normal Intervals: Normal HI QRS: Normal Ischemia: Normal ST segments Computer interpretation: Agree with computer - Labs Labs: Laboratory Tests 08/01/19 08/01/19 08/01/19 12:30 12:30 12:49 WBC 14.1 H RBC 4.67 L Hgb 14.9 Hct 43.4 MCV 92.9 MCH 31.9 H MCHC 34.3 RDW 13.4 Plt Count 256 MPV 10.7 Neut # (Auto) 10.0 H Lymph # (Auto) 2.6 [place] # (Auto) 1.3 H Eos # (Auto) 0.1 Baso # (Auto) 0.1 Absolute Nucleated RBC 0.00 Nucleated RBC % 0.0 Sodium 136 Potassium 4.2 Chloride 100 L Carbon Dioxide 24 Anion Gap 12.0 BUN 12 Creatinine 1.0 Estimated GFR (MDRD) 79 L Glucose 140 H Calcium 9.4 Total Bilirubin 0.8 AST 27 ALT 38 Alkaline Phosphatase 71 Total Protein 7.1 Albumin 4.0 Globulin 3.1 Albumin/Globulin Ratio 1.3 Lipase 23 Urine Color DARK YELLOW Urine Clarity CLEAR Urine pH 6.5 Ur Specific [place] 1.020 Urine Protein NEGATIVE Urine Glucose (UA) 250 H Urine Ketones TRACE Urine Occult Blood NEGATIVE Urine Nitrite NEGATIVE Urine Bilirubin NEGATIVE Urine Urobilinogen 0.2 (NORMAL) Ur Leukocyte Esterase NEGATIVE Ur Microscopic Review NOT INDICATED Urine Culture Comments NOT INDICATED - Rads (name of study) Right upper quadrant ultrasound Radiology: EMP read contemporaneously (Cholelithiasis without evidence of cholecystitis, increased hepatic echotexture) CT A/P Radiology: EMP read contemporaneously (uncomplicated appy) PD MEDICAL DECISION MAKING - ED course ED course: 49-year-old gentleman presents with acute right-sided abdominal pain, the pattern is most consistent with biliary etiology and prior imaging reviewed and was noted to have gallstones on prior CT, and given the sudden onset I think that is more likely than appendicitis and an ultrasound was ordered. He was reexamined several times though and the exam seemed to vacillate between more tenderness in the right upper versus right lower quadrant. He definitely had a gallstone on ultrasound but no evidence of cholecystitis, and his labs were notable for a leukocytosis without Evidence of cholestasis or transaminitis. As such I followed this with a CT which did not demonstrate the culprit lesion of appendicitis and the surgeon, Dr. Varela was called at 3:19 PM. He will be in to see the patient. Last oral intake 6:30 AM. We agreed on Zosyn in the interim. Departure - Departure Disposition: ED Transfer to [facility] Clinical Impression: Abdominal pain Qualifiers: Abdominal location: generalized Qualified Code(s): R10.84 - Generalized abdominal pain Cholelithiasis Qualifiers: Cholelithiasis location: gallbladder Cholecystitis presence: without cholecystitis Biliary obstruction: without biliary obstruction Qualified Code(s): K80.20 - Calculus of gallbladder without cholecystitis without obstruction Appendicitis Qualifiers: Appendicitis type: acute appendicitis Acute appendicitis type: with localized peritonitis Appendicitis gangrene presence: without gangrene Appendicitis perforation presence: without perforation
[2019-08-01 12:51] LABS: ALBUMIN/GLOBULIN RATIO 1.3 (1.0-2.2); BILIRUBIN,TOTAL 0.8 mg/dL (0.2-1.0); CALCIUM 9.4 mg/dL (8.5-10.3); TOTAL PROTEIN 7.1 g/dL (6.7-8.2)
--- NOTE | 2019-08-01 14:18 | Ultrasound Report ---
Reason: RUQ pain Procedure Date: 08/01/2019 Accession Number: [id number] / [id number] Procedure: US - Abdomen Limited CPT Code: Final Report FULL RESULT: PROCEDURE: Abdomen Limited INDICATIONS: RUQ pain TECHNIQUE: Real-time scanning was performed of the abdominal and retroperitoneal organs, with image documentation. COMPARISON: CT dated 06/28/2019. FINDINGS: Liver: Liver demonstrates diffusely increased echotexture without focal intrahepatic mass. Gallbladder: There is a mobile 2.5 x 2.4 cm gallstone. This correlates with findings seen on comparison CT. No gallbladder wall thickening. No pericholecystic fluid. Negative sonographic Wheat's. Biliary ducts: Intrahepatic bile ducts are non-dilated. Extrahepatic bile duct caliber measures 4 mm. Normal is 6-7 mm or less in diameter, or 10 mm or less post-cholecystectomy. Pancreas: Visualized portions of the pancreas are sonographically normal. Kidneys: Right kidney is normal in size and echotexture. Right kidney measures 12.7 cm long No hydronephrosis or nephrolithiasis. No solid masses. Miscellaneous: No free abdominal fluid. IMPRESSION: 1. Cholelithiasis without sonographic evidence for acute cholecystitis. 2. Diffusely increased hepatic echotexture possibly representing diffuse hepatic steatosis versus chronic hepatocellular disease. Reviewed by: Gustavo Sy MD on 08/01/2019 2:16 PM PDT Approved by: Gustavo Sy MD on 08/01/2019 2:16 PM PDT Station ID: [id number]
[2019-08-01] MEDS ORDERED: IOVERSOL 320 100 ML VIAL IVP ONE ×2 (14:30→14:56)
--- NOTE | 2019-08-01 15:13 | CT Report ---
Reason: IV only RLQ pain Procedure Date: 08/01/2019 Accession Number: [id number] / [id number] Procedure: CT - Abdomen/Pelvis W CPT Code: Final Report FULL RESULT: PROCEDURE: Abdomen/Pelvis W INDICATIONS: IV only RLQ pain CONTRAST: IV CONTRAST: Optiray 320 ml: 100 PO CONTRAST: *NO PO CONTRAST TECHNIQUE: After the administration of oral and intravenous contrast, 5 mm thick sections acquired from the diaphragms to the symphysis. 5 mm thick coronal and sagittal reformats were acquired. For radiation dose reduction, the following was used: automated exposure control, adjustment of mA and/or kV according to patient size. COMPARISON: 06/28/2019. FINDINGS: Image quality: Excellent. ABDOMEN: Lung bases: Lung bases are clear. Heart size is normal. Solid organs: Liver and spleen are normal in size and enhancement. Gallbladder contains a 2.[address] evidence for acute cholecystitis. Biliary system is non dilated. Pancreas enhances normally. No adrenal nodules. Kidneys demonstrate normal size and enhancement, without hydronephrosis. Peritoneum and bowel: Scattered colonic diverticulosis without acute diverticulitis. Previously seen left lower quadrant sigmoid diverticulitis has resolved. There is moderate inflammatory stranding surrounding the tip of the appendix now measuring approximately 1.7 cm in diameter. There is mild wall thickening. The base and mid appendix appear within normal limits with air noted in the lumen. No evidence for perforation or abscess formation at this time. Bowel loops demonstrate normal thickness and caliber. No free fluid or air. Nodes and vessels: No retroperitoneal or mesenteric adenopathy by size criteria. Aorta and inferior vena cava are normal in size. Miscellaneous: No ventral hernias. PELVIS: Genitourinary: Bladder wall thickness is normal. Miscellaneous: No pelvic adenopathy. Small right greater than left fat-containing inguinal hernias without acute inflammation. Bones: No suspicious bony lesions. No acute vertebral body compression fractures. Multilevel spondylosis seen throughout the imaged spine. IMPRESSION: 1. Acute appendicitis. No evidence for perforation or abscess formation. 2. Cholelithiasis without CT evidence for acute cholecystitis. 3. Fat-containing bilateral inguinal hernias without acute inflammation. 4. Diverticulosis without evidence for acute diverticulitis. Reviewed by: Gustavo Sy MD on 08/01/2019 3:12 PM PDT Approved by: Gustavo Sy MD on 08/01/2019 3:12 PM PDT Station ID: [id number]
[2019-08-01] MEDS ORDERED: PIPERACILLIN/TAZOBACTAM 4.5 GM in SODIUM CHLORIDE 0.9% MINIBAG 100 ML IV STA (15:18)
[2019-08-01 15:26] LABS: BILIRUBIN,URINE NEGATIVE (NEGATIVE); GLUCOSE, URINE (UA) 250 mg/dL (NEGATIVE); KETONES,URINE (UA) TRACE mg/dL (NEGATIVE); LEUKOCYTE ESTERASE, URINE NEGATIVE (NEGATIVE); NITRITE,URINE NEGATIVE (NEGATIVE); OCCULT BLOOD,URINE NEGATIVE (NEGATIVE); PH,URINE 6.5 PH (5.0-7.5); PROTEIN,URINE NEGATIVE (NEGATIVE); UROBILINOGEN,URINE 0.2 (NORMAL) E.U./dL (NORMAL)
[2019-08-01 15:37] LABS: CLARITY,URINE CLEAR (CLEAR)
[2019-08-01] MEDS ORDERED: LIDOCAINE-MPF 2% 5 ML VIAL IM ONE (16:19)
[2019-08-01] MEDS ORDERED: ONDANSETRON 4 MG/2 ML VIAL IVP ONE (16:19)
[2019-08-01] MEDS ORDERED: GLYCOPYRROLATE 1 MG/5 ML VIAL IVP ONE (16:19)
[2019-08-01] MEDS ORDERED: MIDAZOLAM 2 MG/2 ML VIAL IVP ONE (16:19)
[2019-08-01] MEDS ORDERED: ACETAMINOPHEN 1,000 MG/100 ML VIAL IV ONE (16:19)
[2019-08-01] MEDS ORDERED: ROCURONIUM 50 MG/5 ML VIAL IVP ONE (16:19)
[2019-08-01] MEDS ORDERED: NEOSTIGMINE 1 MG/1 ML 10 ML MDV IVP ONE (16:19)
[2019-08-01] MEDS ORDERED: PROPOFOL 200 MG/20 ML VIAL IVP ONE (16:19)
[2019-08-01] MEDS ORDERED: SODIUM CHLORIDE FLUSH 0.9% 10 ML SYRINGE IVP PRN ×2 (16:54→20:16)
--- NOTE | 2019-08-01 16:58 | HISTORY & PHYSICAL EXAMINATION ---
HPI - Admitted From Admitted from: ED - History Obtained From History obtained from: Patient, Family Exam limitations: No limitations - History of Present Illness Pain/Problem Location Description: 24 hr of abdominal pain Severity at the worst: reports: Severe Pain Quality: reports: Sharp Context-Pain started w/: reports: Movement Timing: reports: Abrupt onset Duration: reports: Days: PMH/PSH - Past Medical History Cardiovascular: positive: Hypertension, High cholesterol Respiratory: positive: None Endocrine/Autoimmune: positive: Type 2 diabetes GI: positive: Diverticulitis : positive: None HEENT: positive: Chronic vision loss Psych: positive: Depression, Anxiety, Bipolar disorder, Schizophrenia, Panic attacks, Other Musculoskeletal: positive: None Derm: positive: None MRSA Hx?: No - Past Surgical History Ortho: positive: Carpal Tunnel surgery Social & Family Hx - Social History Does the pt smoke?: Yes Smoking Status: Current every day smoker Does the pt drink ETOH?: No Does the pt have substance abuse?: No - POLST Patient has POLST: No POLST Status: Full Code Meds/Allgy - Home Medications Home Medications: Ambulatory Orders Medication Instructions Recorded Confirmed Metoprolol Tartrate 25 mg PO BID 10/21/17 08/01/19 risperiDONE [Risperdal] 1 mg PO QPM 10/21/17 08/01/19 Divalproex Sodium [Depakote ER] 2,000 mg PO QPM 06/29/19 08/01/19 Fluticasone [Flonase] 1 spray DORI BID 06/29/19 08/01/19 Trazodone HCl 100 - 200 mg PO QPM 06/29/19 08/01/19 Metformin HCl 1,000 mg PO BIDWM 07/31/19 08/01/[address] [Voltaren] 75 mg PO BID 08/01/19 08/01/19 Gabapentin 100 mg PO BID 08/01/19 08/01/19 risperiDONE [Risperdal] 1.5 mg PO DAILY 08/01/19 08/01/19 - Allergies Allergies/Adverse Reactions: Allergies Allergy/AdvReac Type Severity Reaction Status Date / Time chlordiazepoxide Allergy Anaphylaxis Verified 06/28/19 18:41 [From Librax (with clidinium)] clidinium Allergy Anaphylaxis Verified 06/28/19 18:41 [From Librax (with clidinium)] haloperidol [From Haldol] Allergy Itching Verified 08/30/18 13:35 [email or web address] [From Chantix] Allergy Dizziness Verified 08/30/18 13:35 Review of Systems - Constitutional Constitutional: reports: Fatigue, Fever, Poor appetite - Gastrointestinal Gastrointestinal: reports: Abdominal pain, Nausea, Poor appetite - Psychiatric Psychiatric: reports: Depression, Anxiety Exam - Vital Signs Reviewed Vital Signs: Yes Vital Signs: Vital Signs x48h Temp Pulse Resp BP Pulse Ox 08/01/19 16:00 99 18 149/98 H 96 08/01/19 14:32 94 16 138/89 H 96 08/01/19 12:22 36.6 C 102 H 20 135/73 H 97 - Physical Exam General Appearance: positive: No acute distress Eyes Bilateral: positive: Normal inspection, PERRL, EOMI ENT: positive: ENT inspection nml Neck: positive: Nml inspection Respiratory: positive: Chest non-tender, No respiratory distress, Breath sounds nml Cardiovascular: positive: Regular rate & rhythm Abdomen: positive: No distention (Positive right-sided tenderness to deep palpation nondistended no rebound no guarding), Tenderness. negative: Guarding, Rebound Results - Lab Results Fish Bones: 08/01/19 12:30 08/01/19 12:30 Other Lab Results: Lab Results x24hrs 08/01/19 08/01/19 08/01/19 Range/Units 12:49 12:30 12:30 WBC 14.1 H (4.8-10.8) x10^3/uL RBC 4.67 L (4.70-6.10) 10^6/uL Hgb 14.9 (14.0-18.0) g/dL Hct 43.4 (42.0-52.0) % MCV 92.9 (80.0-94.0) fL MCH 31.9 H (27.0-31.0) pg MCHC 34.3 (32.0-36.0) g/dL RDW 13.4 (12.0-15.0) % Plt Count 256 (130-450) 10^3/uL MPV 10.7 (7.4-11.4) fL Neut # (Auto) 10.0 H (1.5-6.6) 10^3/uL Lymph # (Auto) 2.6 (1.5-3.5) 10^3/uL [place] # (Auto) 1.3 H (0.0-1.0) 10^3/uL Eos # (Auto) 0.1 (0.0-0.7) 10^3/uL Baso # (Auto) 0.1 (0.0-0.1) 10^3/uL Absolute Nucleated RBC 0.00 x10^3/uL Nucleated RBC % 0.0 /100WBC Sodium 136 (135-145) mmol/L Potassium 4.2 (3.5-5.0) mmol/L Chloride 100 L (101-111) mmol/L Carbon Dioxide 24 (21-32) mmol/L Anion Gap 12.0 (6-13) BUN 12 (6-20) mg/dL Creatinine 1.0 (0.6-1.2) mg/dL Estimated GFR (MDRD) 79 L (>89) Glucose 140 H (70-100) mg/dL Calcium 9.4 (8.5-10.3) mg/dL Total Bilirubin 0.8 (0.2-1.0) mg/dL AST 27 (10-42) IU/L ALT 38 (10-60) IU/L Alkaline Phosphatase 71 (42-121) IU/L Total Protein 7.1 (6.7-8.2) g/dL Albumin 4.0 (3.2-5.5) g/dL Globulin 3.1 (2.1-4.2) g/dL Albumin/Globulin Ratio 1.3 (1.0-2.2) Lipase 23 (22-51) U/L Urine Color DARK YELLOW Urine Clarity CLEAR (CLEAR) Urine pH 6.5 (5.0-7.5) PH Ur Specific [place] 1.020 (1.002-1.030) Urine Protein NEGATIVE (NEGATIVE) mg/dL Urine Glucose (UA) 250 H (NEGATIVE) mg/dL Urine Ketones TRACE (NEGATIVE) mg/dL Urine Occult Blood NEGATIVE (NEGATIVE) Urine Nitrite NEGATIVE (NEGATIVE) Urine Bilirubin NEGATIVE (NEGATIVE) Urine Urobilinogen 0.2 (NORMAL) (NORMAL) E.U./dL Ur Leukocyte Esterase NEGATIVE (NEGATIVE) Ur Microscopic Review NOT INDICATED Urine Culture Comments NOT INDICATED - Diagnostic Imaging Results Diagnostic Imaging Results: positive: Prelim report reviewed - EKG Results EKG Findings: EKG ordered and pending Sepsis Event Note (H) - Evaluation Current Stage of Sepsis: Sepsis Possible source of Sepsis: positive: GI tract/intra-abdominal Confirmed Source and Organism (if known) of Sepsis: Appendix Sepsis Associated Organ Dysfunction: Appendix - Sepsis Criteria Sepsis Criteria: Recorded Temperature greater than 38.3C or Less than 36C, Recorded Heart Rate greater than 90 bpm, WBC count greater than 12,000 or less than 4000 Impression/Plan - Problem List Problem List: 49-year-old male presenting with acute appendicitis with multiple comorbid states including diabetes, psychiatric disorder, hypertension amongst others. Patient also notable for arthritis and currently on Voltaren/Diclofenac. Leukocytosis to 14, CT confirms appendicitis with dilation, retrocecal. Plan goi ng forward is as follows: 1. Bowel rest, IV fluid resuscitation, IV antibiotics. 2. Preoperative chest x-ray, preoperative EKG, labs evaluated. 3. Planned diagnostic laparoscopy, laparoscopic appendectomy, other indicated procedures. Patient counseled of the risk associated with operative int ervention including but not limited to conversion to open procedure, injury to local structures, and anesthesia risks of heart attack, stroke, . 4. Postoperative care under observation status with continued IV antibiotics.
[2019-08-01] MEDS ORDERED: NICOTINE 21 MG PATCH TOP STA (16:59)
--- NOTE | 2019-08-01 17:24 | XRAY Report ---
Reason: preop Procedure Date: 08/01/2019 Accession Number: [id number] / [id number] Procedure: XR - Chest 1 View X-Ray CPT Code: 97108 Final Report FULL RESULT: PROCEDURE: Chest 1 View X-Ray INDICATIONS: preop TECHNIQUE: One view of the chest was acquired. COMPARISON: 03/27/2019 FINDINGS: Surgical changes and devices: None. Lungs and pleura: No pleural effusions or pneumothorax. Lungs are clear. Mediastinum: Mediastinal contours appear normal. Heart size is normal. Bones and chest wall: No suspicious bony lesions. Overlying soft tissues appear unremarkable. Radiopaque density projects over the medial aspect of the left upper lung zone, unchanged. IMPRESSION: Stable examination of the chest. No acute cardiopulmonary abnormalities. Reviewed by: Gustavo Sy MD on 08/01/2019 5:22 PM PDT Approved by: Gustavo Sy MD on 08/01/2019 5:22 PM PDT Station ID: [id number]
[2019-08-01] MEDS ORDERED: LIDOCAINE 1%-EPI 1:100000 20 ML MDV ONE (17:25)
[2019-08-01] MEDS ORDERED: BUPIVACAINE 0.5% PF 30 ML VIAL ONE (17:25)
--- NOTE | 2019-08-01 17:35 | ANESTHESIA ---
Pre-Anesthesia VS, & Labs - Diagnosis acute apendicitis - Procedure Lap Appy Vital Signs: Temp Pulse Resp BP Pulse Ox 36.6 C 99 18 149/98 H 96 08/01/19 12:22 08/01/19 16:00 08/01/19 16:00 08/01/19 16:00 08/01/19 16:00 Height 5 ft 11 in Weight (kg) 119.295 kg Body Mass Index 36.6 - NPO >8 hours - Lab Results Current Lab Results: Laboratory Tests 08/01/19 12:30: Sodium 136, Potassium 4.2, Chloride 100 L, Carbon Dioxide 24, Anion Gap 12.0, BUN 12, Creatinine 1.0, Estimated GFR (MDRD) 79 L, Glucose 140 H , Calcium 9.4, Total Bilirubin 0.8, AST 27, ALT 38, Alkaline Phosphatase 71, To paul Protein 7.1, Albumin 4.0, Globulin 3.1, Albumin/Globulin Ratio 1.3, Lipase 23 08/01/19 12:30: WBC 14.1 H, RBC 4.67 L, Hgb 14.9, Hct 43.4, MCV 92.9, MCH 31.9 H , MCHC 34.3, RDW 13.4, Plt Count 256, MPV 10.7, Neut # (Auto) 10.0 H, Lymph # (Auto) 2.6, [place] # (Auto) 1.3 H, Eos # (Auto) 0.1, Baso # (Auto) 0.1, Absolute Nucleated RBC 0.00, Nucleated RBC % 0.0 Fish Bones: 08/01/19 12:30 08/01/19 12:30 Home Medications and Allergies Home Medications: Ambulatory Orders Diclofenac Sodium Dr [Voltaren] 75 mg PO BID 08/01/19 Gabapentin 100 mg PO BID 08/01/19 risperiDONE [Risperdal] 1.5 mg PO DAILY 08/01/19 Active Medications Heparin Sodium (Porcine) () 5,000 unit SUBQ TID CHRISTY Sodium Chloride (Normal Saline Flush 0.9%) 10 ml IVP 0100,0900,1700 CHRISTY Sodium Chloride (Normal Saline Flush 0.9%) 10 ml IVP PRN PRN PRN Reason: NEEDED PER PROVIDER ORDERS Metoprolol Tartrate 25 mg PO BID 10/21/17 risperiDONE [Risperdal] 1 mg PO QPM 10/21/17 Divalproex Sodium [Depakote ER] 2,000 mg PO QPM 06/29/19 Fluticasone [Flonase] 1 spray DORI BID 06/29/19 Trazodone HCl 100 - 200 mg PO QPM 06/29/19 Metformin HCl 1,000 mg PO BIDWM 07/31/[address] [Voltaren] 75 mg PO BID 08/01/19 Gabapentin 100 mg PO BID 08/01/19 risperiDONE [Risperdal] 1.5 mg PO DAILY 08/01/19 Allergies/Adverse Reactions: Allergies Allergy/AdvReac Type Severity Reaction Status Date / Time chlordiazepoxide Allergy Anaphylaxis Verified 06/28/19 18:41 [From Librax (with clidinium)] clidinium Allergy Anaphylaxis Verified 06/28/19 18:41 [From Librax (with clidinium)] haloperidol [From Haldol] Allergy Itching Verified 08/30/18 13:35 varenicline [From Chantix] Allergy Dizziness Verified 08/30/18 13:35 Anes History & Medical History - Anesthetic History Anesthesia Complications: reports: No previous complications Family history of Anesthesia Complications: Denies Family history of Malignant Hyperthermia: Denies - Medical History Cardiovascular: reports: Hypertension, High cholesterol Pulmonary: reports: None, Other (1ppd x52 years) Gastrointestinal: reports: Diverticulitis Urinary: reports: None Neuro: reports: None Musculoskeletal: reports: Osteoarthritis Endocrine/Autoimmune: reports: Type 2 diabetes Blood Disorders: reports: None Skin: reports: None Smoking Status: Current every day smoker Psychosocial: reports: Anxiety - Surgical History Orthopedic: Carpal Tunnel surgery Exam General: Alert, Oriented x3, Cooperative, No acute distress Dental: Dentures full Upper, Dentures full Lower (not with him) Mouth Openin Fingerbreadth Mallampati classification: III Thyromental Distance: 4-6 cm Respiratory: Lungs clear, Normal breath sounds, No respiratory distress, No accessory muscle use Cardiovascular: Regular rate, Normal S1, Normal S2, No murmurs Abdomen: Normal bowel sounds, Soft, No tenderness, No hepatospenomegaly, No masses Extremities: No clubbing, No cyanosis, No edema, Normal pulses, No tenderness /swelling Neurological: Normal gait, Normal speech, Strength at 5/5 X4 ext, Normal tone, Sensation intact, Cranial nerves 3-12 NL, Reflexes 2+ Mental/Cognitive Status: Alert/Oriented X3, Normal for patient Cognitive Status: Within normal limits Plan Anesthesia Type: General, Transverse Abdominis Plane (TAP) Block Consent for Procedure(s) Verified and Reviewed: Yes Code Status: Attempt Resuscitation ASA classification: 2-Mild systemic disease Is this case an emergency?: Yes
[2019-08-01] MEDS ORDERED: ROPIVACAINE 0.2% PF 20ML VIAL ONE (17:54)
[2019-08-01] MEDS ORDERED: ROPIVACAINE 0.5% PF 20 ML AMPULE ONE (17:54)
[2019-08-01] MEDS ORDERED: BUPIVACAINE 0.5% PF 30 ML VIAL INFIL ONE (18:45)
[2019-08-01] MEDS ORDERED: LIDOCAINE 1%-EPI 1:100000 20 ML MDV SUBQ ONE (18:46)
[2019-08-01] MEDS ORDERED: LACTATED RINGERS 1,000 ML IV ONE ×2 (18:47→20:27)
[2019-08-01] MEDS ORDERED: HYDROmorphone 1 MG/ML CARPUJECT IVP PRN (20:16)
[2019-08-01] MEDS ORDERED: ONDANSETRON 4 MG/2 ML VIAL IVP PRN (20:16)
--- NOTE | 2019-08-01 20:28 | OPERATIVE REPORT ---
Operative Report - General Procedure Date: 08/01/19 Planned Procedure: Diagnostic laparoscopy, laparoscopic appendectomy, other indicated procedures Pre-Op Diagnosis: Abdominal sepsis, acute appendicitis, diabetes, obesity, umbilical hernia Procedure Performed: 1. Diagnostic laparoscopy 2. Laparoscopic appendectomy 3. Laparoscopic adhesiolysis 4. Open umbilical hernia repair 5. Abdominal washout and drainage of abscess Post Op Diagnosis: Same, contained perforated suppurative appendicitis - Procedure Note Primary Surgeon: Avery Anesthesia Provider: Michael Anesthesia Technique: General ET tube, Local, Regional block Pathology: Appendix with portion of cecum Estimated Blood Loss (mL): 100 Indications: Abdominal sepsis, acute appendicitis by imaging and clinically. Findings: Suppurative contained perforation, appendicitis retrocecal with dense desmoplastic reaction. Abscess drained and sent for culture. Aggressive laparoscopic irrigation and washout. Partial seek ectomy accomplished en bloc with appendix. Hemostatic. Surgicel left in place. Suppurative contained perforation, appendicitis retrocecal with dense desmoplastic reaction. Abscess drained and sent for culture. Aggressive laparoscopic irrigation and washout. Partial seek ectomy accomplished en bloc with appendix. Hemostatic. Surgicel left in place. Complications: None - Other Other Information/Narrative: OPERATIVE PROCEDURE: The patient was taken to the operating room, placed supine on the operating table. The patent was already obtained tor informed consent which was documented in the patients permanent medical record The patient was induced for general endotracheal anesthesia. The patient was positioned, off loaded and padded at all pressure points. The patient was placed for a Patel catheter and tucked for the left arm. The patient was prepped and draped in the usual sterile fashion. The patient was called for a time out which was agreed to all in the room. Anesthesia had already performed tap block for perioperative analgesia. Open Taylor technique was performed through umbilicus and umbilical trocar was placed. This was achieved with a circumlinear donna-umbilical incision. This is taken through the subcutaneous fat, the umbilical stalk was dissected off and obvious hernia defect was appreciated. This was done without any injury to the umbilical skin. That [place] defect was enlarged and accommodated Taylor trocar without any complication. Insufflation was commenced which the patient tolerated to 15 mmHg well with no complication. Additional trocars were placed suprapubic and left lower quadrant under direct laparoscopic vision. At this time the patient was placed in Trendelenburg position with right side up and we proceeded to isolate the cecum which was densely adhered to the sidewall. There was dense desmoplastic reaction with phlegmonous changes and what appeared to be early abscess along the pelvic sidewall. Abscess was drained and aspirated and sent for culture. Patient was aggressively irrigated for 2 L of fluid. The appendix was retrocecal and densely adhered overlying the pelvic sidewall however the structures both iliac artery vein as well as the ureters were protected and identified throughout. The appendix was continued to be mobilized and thereafter we achieved mobilization medially taking care to note the location of the ureter which was protected and identified throughout the entirety at this case especially given the extent of the patients inflammatory changes. Ultimately the cecum was isolated free, and the appendix was thereafter completely mobilized off the abdominal and pelvic sidewall. At this time there were dense adhesions noted of the appendix to the ascending colon and cecum and this required careful dissection as well, both blunt and also using the suction wound care technician and cautery with counter-traction. As stated an abscess was noted and had already been drained and sent for culture on aspiration. At this time a [place] was used to dissect the cecal-appendiceal junction and thereafter using a ENDOGIA linear cutting stapler, the appendix was divided at the base to include portion at the cecum. The ileocecal valve was identified and protected throughout with no involvement. The mesoappendix was divided using multiple firings of Endo BIBIANA linear cutting stapler. Occult bleeding from this area was addressed with cautery as well as Endo Clip application. Surgicel was left along the staple lines in spite of successful hemostasis once these above measures were achieved. At this time, we continued to mobilize the appendix off the ascending colon and caecum making sure there was no inadvertent injury to the ascending colon and the cecum which was again densely adhered to the appendix. This was performed with great care using blunt as well as sharp and electrocautery dissection and ultimately isolated and dissected free the appendix which was placed into an Endo Catch bag for control of any further spillage. The appendiceal staple line and mesoappendix staple line and ligature were evaluated and hemostatic, see above for specifics. At this time, we extensively irrigated the abdomen with greater than 2 liters of sterile saline and aspirated clear. At this time all trochars, secondary, were removed under direct laparoscopic visualization with no consequent bleeding. We removed the Taylor trocar, passed the specimen off for permanent pathology. We closed the umbilical defect with several [id number]'s of 0 Vicryl, and performed umbilicoplasty simultaneous. A mixture of quarter percent Marcaine and 1% lidocaine were instilled within the wounds for a total of 10 cc. All skin and subcutaneous tissue was reapproximated with a subcuticular of 4-0 Monocryl. Wounds were dressed with Dermabond. I was present for the entirety of this operative intervention patient tolerated procedure well which is no complication. All counts were sponges needles and instruments were correct at the conclusion of this operative case.
[2019-08-01] MEDS ORDERED: risperiDONE 1 MG TABLET PO SCH (21:00)
[2019-08-01] MEDS: ACETAMINOPHEN 1,000 MG/100 ML 100 ML IV SCH (22:11)
[2019-08-01] MEDS: SODIUM CHLORIDE FLUSH 0.9% 10 ML SYRINGE IVP SCH ×3 (22:11→23:35)
[2019-08-01] MEDS: PIPERACILLIN/TAZOBACTAM 3.375 GM in SODIUM CHLORIDE 0.9% MINIBAG 100 ML IV SCH ×2 (22:23→23:27)
[2019-08-01] MEDS: METOPROLOL TARTRATE 25 MG TABLET PO SCH (22:26)
[2019-08-01] MEDS: FLUTICASONE NASAL SPRAY NAS SCH (22:26)
[2019-08-01] MEDS: GABAPENTIN 100 MG CAPSULE PO SCH (22:28)
[2019-08-02 01:07] LABS: HB2 TOTAL 15.3 g/dL; HEMOGLOBIN A1C 0.87 g/dL; HEMOGLOBIN A1C % 7.4 % (4.6-6.2)
[2019-08-02] MEDS: ACETAMINOPHEN 1,000 MG/100 ML 100 ML IV SCH ×3 (02:34→14:01)
[2019-08-02] MEDS: ACETAMINOPHEN 325 MG TABLET PO PRN ×3 (02:44→16:47)
[2019-08-02] MEDS: oxyCODONE 5 MG TABLET PO PRN ×4 (02:45→16:47)
[2019-08-02 05:08] LABS: BASOPHILS % (AUTO) 0.2 %; LYMPHOCYTES # (AUTO) 1.3 10^3/uL (1.5-3.5); LYMPHOCYTES % (AUTO) 7.8 %; MEAN CORPUSCULAR HEMOGLOBIN 31.5 pg (27.0-31.0); MEAN CORPUSCULAR HGB CONC 33.1 g/dL (32.0-36.0); MEAN CORPUSCULAR VOLUME 95.3 fL (80.0-94.0); MEAN PLATELET VOLUME 11.1 fL (7.4-11.4); MONOCYTES # (AUTO) 0.8 10^3/uL (0.0-1.0); MONOCYTES % (AUTO) 4.9 %; NEUTROPHILS # (AUTO) 14.4 10^3/uL (1.5-6.6); NEUTROPHILS % (AUTO) 86.4 %; PLT - PLATELET COUNT 245 10^3/uL (130-450); RED BLOOD COUNT 4.44 10^6/uL (4.70-6.10); RED CELL DISTRIBUTION WIDTH 13.5 % (12.0-15.0); WHITE BLOOD COUNT 16.7 x10^3/uL (4.8-10.8)
[2019-08-02 05:23] LABS: ALBUMIN 3.8 g/dL (3.2-5.5); ALBUMIN/GLOBULIN RATIO 1.3 (1.0-2.2); BILIRUBIN,TOTAL 0.9 mg/dL (0.2-1.0); CALCIUM 8.8 mg/dL (8.5-10.3); PHOSPHORUS 3.3 mg/dL (2.5-4.6); TOTAL PROTEIN 6.8 g/dL (6.7-8.2)
[2019-08-02] MEDS ORDERED: HEPARIN 5,000 UNIT/ML VIAL SUBQ SCH (06:00)
[2019-08-02] MEDS: PIPERACILLIN/TAZOBACTAM 3.375 GM in SODIUM CHLORIDE 0.9% MINIBAG 100 ML IV SCH ×2 (06:07→12:21)
[2019-08-02] MEDS ORDERED: PANTOPRAZOLE 40 MG TABLET PO SCH (07:00)
--- NOTE | 2019-08-02 07:18 | PHARMACY PROGRESS NOTE ---
- Best Possible Medication History Admit Date and Time: 08/01/192113 Processed by: Pharmacy Medication History completed: Yes Patient Interview: Completed Secondary Source(s): Prescription bottles, Caregiver, Pharmacy records, Insurance records As the person ultimately responsible for medication therapy, providers are able to order a medication from an existing home medication list in [facility] via the "Reconcile Routine" prior to Confirmation of that medication by technician support engineer. Such practice is discouraged except when the physician, in their clinical judgment, deems that a medical need exists for a medication without regard to previous use.
[2019-08-02] MEDS: HEPARIN 5,000 UNIT/ML VIAL SUBQ SCH ×2 (08:40→14:01)
[2019-08-02] MEDS: GABAPENTIN 100 MG CAPSULE PO SCH (08:44)
[2019-08-02] MEDS: METOPROLOL TARTRATE 25 MG TABLET PO SCH (08:44)
[2019-08-02] MEDS: INSULIN ASPART 300 UNIT/3 ML PEN SUBQ SCH ×3 (08:45→16:48)
[2019-08-02] MEDS: FLUTICASONE NASAL SPRAY NAS SCH (08:46)
[2019-08-02] MEDS: SODIUM CHLORIDE FLUSH 0.9% 10 ML SYRINGE IVP SCH ×4 (08:46→16:48)
[2019-08-02] MEDS ORDERED: risperiDONE 1 MG TABLET PO SCH (09:00)
--- NOTE | 2019-08-02 14:43 | PROVIDER PROGRESS NOTE ---
Subjective - General Admit Date: 08/01/19 Procedure Date: 08/01/19 Post Op Days: 1 Objective - Patient Data Vital Signs: Vital Signs x48h Temp Pulse Resp BP BP Pulse Ox 08/02/19 13:17 36.8 C 94 18 136/79 H 95 08/02/19 08:44 146/82 H 08/02/19 07:38 37.2 C 102 H 16 125/81 H 94 Weight: Weight 07/31/19 08/01/19 08/02/19 23:59 23:59 23:59 Weight (kg) 119.3 kg Intake & Output: Intake and Output Totals x24h 07/31/19 08/01/19 08/02/19 23:59 23:59 23:59 Intake Total 300 1300 Output Total 450 625 Balance -150 675 - Lab Results Lab Results: 08/02/19 04:55 08/02/19 04:55 Other Lab Results: Lab Results x24hrs 08/02/19 08/02/19 08/02/19 Range/Units 11:35 07:31 04:55 WBC (4.8-10.8) x10^3/uL RBC (4.70-6.10) 10^6/uL Hgb (14.0-18.0) g/dL Hct (42.0-52.0) % MCV (80.0-94.0) fL MCH (27.0-31.0) pg MCHC (32.0-36.0) g/dL RDW (12.0-15.0) % Plt Count (130-450) 10^3/uL MPV (7.4-11.4) fL Neut # (Auto) (1.5-6.6) 10^3/uL Lymph # (Auto) (1.5-3.5) 10^3/uL [place] # (Auto) (0.0-1.0) 10^3/uL Eos # (Auto) (0.0-0.7) 10^3/uL Baso # (Auto) (0.0-0.1) 10^3/uL Absolute Nucleated RBC x10^3/uL Nucleated RBC % /100WBC Sodium 135 (135-145) mmol/L Potassium 4.4 (3.5-5.0) mmol/L Chloride 99 L (101-111) mmol/L Carbon Dioxide 26 (21-32) mmol/L Anion Gap 10.0 (6-13) BUN 13 (6-20) mg/dL Creatinine 1.0 (0.6-1.2) mg/dL Estimated GFR (MDRD) 79 L (>89) Glucose 163 H (70-100) mg/dL POC Whole Bld Glucose 158 H 174 H (70 - 100) mg/dL Glycated Hemoglobin (4.6-6.2) % Estim Average Glucose (70-100) Calcium 8.8 (8.5-10.3) mg/dL Phosphorus 3.3 (2.5-4.6) mg/dL Magnesium 2.0 (1.7-2.8) mg/dL Total Bilirubin 0.9 (0.2-1.0) mg/dL AST 23 (10-42) IU/L ALT 33 (10-60) IU/L Alkaline Phosphatase 58 (42-121) IU/L Total Protein 6.8 (6.7-8.2) g/dL Albumin 3.8 (3.2-5.5) g/dL Globulin 3.0 (2.1-4.2) g/dL Albumin/Globulin Ratio 1.3 (1.0-2.2) Urine Color Urine Clarity (CLEAR) Urine pH (5.0-7.5) PH Ur Specific [place] (1.002-1.030) Urine Protein (NEGATIVE) mg/dL Urine Glucose (UA) (NEGATIVE) mg/dL Urine Ketones (NEGATIVE) mg/dL Urine Occult Blood (NEGATIVE) Urine Nitrite (NEGATIVE) Urine Bilirubin (NEGATIVE) Urine Urobilinogen (NORMAL) E.U./dL Ur Leukocyte Esterase (NEGATIVE) Ur Microscopic Review Urine Culture Comments 08/02/19 08/01/19 08/01/19 Range/Units 04:55 23:42 20:36 WBC 16.7 H (4.8-10.8) x10^3/uL RBC 4.44 L (4.70-6.10) 10^6/uL Hgb 14.0 (14.0-18.0) g/dL Hct 42.3 (42.0-52.0) % MCV 95.3 H (80.0-94.0) fL MCH 31.5 H (27.0-31.0) pg MCHC 33.1 (32.0-36.0) g/dL RDW 13.5 (12.0-15.0) % Plt Count 245 (130-450) 10^3/uL MPV 11.1 (7.4-11.4) fL Neut # (Auto) 14.4 H (1.5-6.6) 10^3/uL Lymph # (Auto) 1.3 L (1.5-3.5) 10^3/uL [place] # (Auto) 0.8 (0.0-1.0) 10^3/uL Eos # (Auto) 0.0 (0.0-0.7) 10^3/uL Baso # (Auto) 0.0 (0.0-0.1) 10^3/uL Absolute Nucleated RBC 0.00 x10^3/uL Nucleated RBC % 0.0 /100WBC Sodium (135-145) mmol/L Potassium (3.5-5.0) mmol/L Chloride (101-111) mmol/L Carbon Dioxide (21-32) mmol/L Anion Gap (6-13) BUN (6-20) mg/dL Creatinine (0.6-1.2) mg/dL Estimated GFR (MDRD) (>89) Glucose (70-100) mg/dL POC Whole Bld Glucose 160 H 145 H (70 - 100) mg/dL Glycated Hemoglobin (4.6-6.2) % Estim Average Glucose (70-100) Calcium (8.5-10.3) mg/dL Phosphorus (2.5-4.6) mg/dL Magnesium (1.7-2.8) mg/dL Total Bilirubin (0.2-1.0) mg/dL AST (10-42) IU/L ALT (10-60) IU/L Alkaline Phosphatase (42-121) IU/L Total Protein (6.7-8.2) g/dL Albumin (3.2-5.5) g/dL Globulin (2.1-4.2) g/dL Albumin/Globulin Ratio (1.0-2.2) Urine Color Urine Clarity (CLEAR) Urine pH (5.0-7.5) PH Ur Specific [place] (1.002-1.030) Urine Protein (NEGATIVE) mg/dL Urine Glucose (UA) (NEGATIVE) mg/dL Urine Ketones (NEGATIVE) mg/dL Urine Occult Blood (NEGATIVE) Urine Nitrite (NEGATIVE) Urine Bilirubin (NEGATIVE) Urine Urobilinogen (NORMAL) E.U./dL Ur Leukocyte Esterase (NEGATIVE) Ur Microscopic Review Urine Culture Comments 08/01/19 08/01/19 Range/Units 12:49 12:27 WBC (4.8-10.8) x10^3/uL RBC (4.70-6.10) 10^6/uL Hgb (14.0-18.0) g/dL Hct (42.0-52.0) % MCV (80.0-94.0) fL MCH (27.0-31.0) pg MCHC (32.0-36.0) g/dL RDW (12.0-15.0) % Plt Count (130-450) 10^3/uL MPV (7.4-11.4) fL Neut # (Auto) (1.5-6.6) 10^3/uL Lymph # (Auto) (1.5-3.5) 10^3/uL [place] # (Auto) (0.0-1.0) 10^3/uL Eos # (Auto) (0.0-0.7) 10^3/uL Baso # (Auto) (0.0-0.1) 10^3/uL Absolute Nucleated RBC x10^3/uL Nucleated RBC % /100WBC Sodium (135-145) mmol/L Potassium (3.5-5.0) mmol/L Chloride (101-111) mmol/L Carbon Dioxide (21-32) mmol/L Anion Gap (6-13) BUN (6-20) mg/dL Creatinine (0.6-1.2) mg/dL Estimated GFR (MDRD) (>89) Glucose (70-100) mg/dL POC Whole Bld Glucose (70 - 100) mg/dL Glycated Hemoglobin 7.4 H (4.6-6.2) % Estim Average Glucose 166 H (70-100) Calcium (8.5-10.3) mg/dL Phosphorus (2.5-4.6) mg/dL Magnesium (1.7-2.8) mg/dL Total Bilirubin (0.2-1.0) mg/dL AST (10-42) IU/L ALT (10-60) IU/L Alkaline Phosphatase (42-121) IU/L Total Protein (6.7-8.2) g/dL Albumin (3.2-5.5) g/dL Globulin (2.1-4.2) g/dL Albumin/Globulin Ratio (1.0-2.2) Urine Color DARK YELLOW Urine Clarity CLEAR (CLEAR) Urine pH 6.5 (5.0-7.5) PH Ur Specific [place] 1.020 (1.002-1.030) Urine Protein NEGATIVE (NEGATIVE) mg/dL Urine Glucose (UA) 250 H (NEGATIVE) mg/dL Urine Ketones TRACE (NEGATIVE) mg/dL Urine Occult Blood NEGATIVE (NEGATIVE) Urine Nitrite NEGATIVE (NEGATIVE) Urine Bilirubin NEGATIVE (NEGATIVE) Urine Urobilinogen 0.2 (NORMAL) (NORMAL) E.U./dL Ur Leukocyte Esterase NEGATIVE (NEGATIVE) Ur Microscopic Review NOT INDICATED Urine Culture Comments NOT INDICATED - Current Medications Current Medications: Current Medications Generic Name Dose Route Start Last Admin Trade Name Freq PRN Reason Stop Dose Admin Acetaminophen 325 mg 08/01/19 20:16 08/02/19 06:34 Tylenol PO 325 mg Q4HR PRN Administration PAIN Fluticasone Propionate 1 sprays 08/01/19 21:00 08/02/19 08:46 Flonase DORI 1 applic BID CHRISTY Administration Gabapentin 100 mg 08/01/19 21:00 08/02/19 08:44 Neurontin PO 100 mg BID CHRISTY Administration Heparin Sodium (Porcine) 5,000 unit 08/02/19 09:00 08/02/19 14:01 SUBQ 5,000 unit TID CHRISTY Administration Hydromorphone HCl 0.5 mg 08/01/19 20:16 08/02/19 10:50 Dilaudid Inj Carp IVP 0.5 mg Q2HR PRN Administration PAIN Acetaminophen 100 mls @ 400 mls/hr 08/01/19 21:00 08/02/19 14:22 Ofirmev IV Infused Q6H [facility] Infusion Piperacillin Sod/Tazobactam 100 mls @ 200 mls/hr 08/01/19 21:00 08/02/19 13:26 Sod 3.375 gm/ Sodium Chloride IV Infused Q6HR [facility] Infusion Insulin Aspart 1 - 9 unit 08/02/19 08:00 08/02/19 12:22 Novolog SUBQ 1 unit 0800,1200,1700,2100 CHRISTY Administration Protocol Metoprolol Tartrate 25 mg 08/01/19 21:00 08/02/19 08:44 Lopressor PO 25 mg BID CHRISTY Administration Oxycodone HCl 5 mg 08/01/19 20:16 08/02/19 10:50 Roxicodone PO 5 mg Q4HR PRN Administration PAIN Pantoprazole Sodium 40 mg 08/02/19 07:00 08/02/19 06:08 Protonix PO 40 mg QDAC CHRISTY Administration Risperidone 1 mg 08/01/19 21:00 08/01/19 22:19 Risperdal PO 1 mg QPM CHRISTY Administration Risperidone 1.5 mg 08/02/19 09:00 08/02/19 08:42 Risperdal PO 1.5 mg DAILY CHRISTY Administration Sodium Chloride 10 ml 08/01/19 17:00 08/02/19 08:46 Normal Saline Flush 0.9% IVP 10 ml 0100,0900,1700 CHRISTY Administration Sodium Chloride 10 ml 08/01/19 16:54 08/02/19 06:08 Normal Saline Flush 0.9% IVP 10 ml PRN PRN Administration NEEDED PER PROVIDER ORDERS Sodium Chloride 10 ml 08/02/19 01:00 08/02/19 08:46 Normal Saline Flush 0.9% IVP Not Given 0100,0900,1700 CHRISTY Sodium Chloride 10 ml 08/01/19 20:16 08/02/19 12:22 Normal Saline Flush 0.9% IVP 10 ml PRN PRN Administration NEEDED PER PROVIDER ORDERS
--- NOTE | 2019-08-02 16:00 | Discharge Plan ---
Discharge Plan Problem Reviewed?: Yes Disposition: Home, Self Care Condition: Good Prescriptions: oxyCODONE [Roxicodone] 5 mg PO Q4HR PRN #24 tablet PRN Reason: Pain Amox/Clav 875/125 [Augmentin] 1 each PO Q12H #20 tablet Diet: Soft (Low fiber) Activity Restrictions: No heavy lifting pushing or pulling Shower Restrictions: No (No submerssive of baths) Driving Restrictions: Yes (No driving while taking narcotics) Instruction Topics: Appendectomy Laparoscopic Dc, Hernia Surg Additional Instructions or Follow Up instructions: DISCHARGE INSTRUCTIONS TEMPLATE: No heavy lifting, pushing, or pulling. Stairs are allowed, no strenuous/exertional activities. 5-10lbs weight carrying limit (i.e. gallon of milk) If provided, abdominal binder while out of bed and while ambulating. Call or proceed to clinic/ER for fevers, severe pain, nausea, vomiting, inability to pass flatus/stool, bleeding, wound redness/discharge, weakness, excessively loose stool/diarrhea, or for any other reasonably worrisome symptom or concern. Soft diet, no raw vegetables, avoid high fiber foods. Colace 100mg by mouth twice to three times daily while taking narcotic pain medication. If no bowel movement in 24-48hr, may take 17g Miralax in 8oz water twice daily until bowel movement. May shower, no submersive bathing. Follow up in clinic in 2-4 weeks for wound check and/OR staple removal. No driving while taking narcotic pain medications. Follow up with primary care provider and/or medical subspecialist following discharge as well. No Smoking: If you smoke, Please STOP! Call for help. Follow-up with: MARK ROGERS MD [Primary Care Provider] -
--- NOTE | 2019-08-02 16:10 | DISCHARGE SUMMARY ---
"Discharge Summary Admit Date: 08/01/19 Discharge Date: 08/02/19 Discharging Provider: Avery Code Status: Attempt Resuscitation Condition at Discharge: Good Discharge Disposition: 01 Home, Self Care - DIAGNOSES Admission Diagnoses: * Acute appendicitis * Abdominal sepsis * Umbilical hernia * Abdominal pain * Diabetes * Obesity Discharge Diagnoses with Status of Each Condition: * Acute appendicitis - resolved * Abdominal sepsis - resolved * Umbilical hernia - repaired * Abdominal pain - resolved * Diabetes - unchanged/persists * Obesity - unchanged/persists - HPI History of Present Illness: 49-year-old male presenting with 1 day of abdominal pain. Work-up included ultrasound, CT imaging as well as lab evaluation. Patient notable for a leukocytosis, CT confirmed appendicitis with inflammatory changes. Patient with multiple comorbid states including diabetes and obesity. Opted to proceed to the operating room urgently for laparoscopic intervention. - CONSULTS | PROCEDURES Consultations: None Procedures: Diagnostic laparoscopy, laparoscopic appendectomy, extensive lysis of adhesions, drainage of abscess, abdominal washout, abdominal fluid sampling, open umbilical hernia repair, tap block per anesthesia. - HOSPITAL COURSE Hospital Course: Patient admitted with acute appendicitis. Patient underwent operative intervention as listed in the electronic medical record. Tolerated procedure well for which there was no complication. Postoperatively the patient was managed for postoperative analgesia and resumption of bowel function. Patient had successfully passed trial of void. Tolerated oral intake without any complication. Denied nausea denied vomiting. Was advanced for diet without any complication. Was counseled that given evidence of suppuration in the setting of the patient's acute appendicitis would recommend continued antibiotics for 2 weeks; patient was maintained on antibiotics during the hospital stay. Discharge instructions given. Analgesia with oxycodone provided at time of discharge. Patient plan for follow-up and will be notified of pathology once returned. DISCHARGE INSTRUCTIONS TEMPLATE: No heavy lifting, pushing, or pulling. Stairs are allowed, no strenuous/exertional activities. 5-10lbs weight carrying limit (i.e. gallon of milk) If provided, abdominal binder while out of bed and while ambulating. Call or proceed to clinic/ER for fevers, severe pain, nausea, vomiting, inability to pass flatus/stool, bleeding, wound redness/discharge, weakness, excessively loose stool/diarrhea, or for any other reasonably worrisome symptom or concern. Soft diet, no raw vegetables, avoid high fiber foods. Colace 100mg by mouth twice to three times daily while taking narcotic pain medication. If no bowel movement in 24-48hr, may take 17g Miralax in 8oz water twice daily until bowel movement. May shower, no submersive bathing. Follow up in clinic in 2-4 weeks for wound check and staple removal. No driving while taking narcotic pain medications. Follow up with primary care provider and/or medical subspecialist following discharge as well. Stool softeners including Colace and MiraLAX as needed to affect daily bowel movements. - ALLERGIES Allergies/Adverse Reactions: Allergies Allergy/AdvReac Type Severity Reaction Status Date / Time chlordiazepoxide Allergy Anaphylaxis Verified 06/28/19 18:41 [From Librax (with clidinium)] clidinium Allergy Anaphylaxis Verified 06/28/19 18:41 [From Librax (with clidinium)] haloperidol [From Haldol] Allergy Itching Verified 08/30/18 13:35 varenicline [From Chantix] Allergy Dizziness Verified 08/30/18 13:35 - MEDICATIONS Home Medications: Ambulatory Orders Medication Instructions Recorded Confirmed Metoprolol Tartrate 25 mg PO BID 10/21/17 08/01/19 risperiDONE [Risperdal] 1 mg PO QPM 10/21/17 08/01/19 Divalproex Sodium [Depakote ER] 2,000 mg PO QPM 06/29/19 08/01/19 Fluticasone [Flonase] 1 spray DORI BID 06/29/19 08/01/19 Trazodone HCl 100 - 200 mg PO QPM 06/29/19 08/01/19 Metformin HCl 1,000 mg PO BIDWM 07/31/19 08/01/19 Gabapentin 100 mg PO BID 08/01/19 08/01/19 risperiDONE [Risperdal] 1.5 mg PO DAILY 08/01/19 08/01/19 Acetaminophen [Tylenol] 325 mg PO Q4HR PRN tablet 08/02/19 Amox/Clav 875/125 [Augmentin] 1 each PO Q12H #20 tablet 08/02/[address] [Voltaren] 75 mg PO BID #0 08/02/19 08/01/19 Pantoprazole [Protonix] 40 mg PO QDAC tablet 08/02/19 oxyCODONE [Roxicodone] 5 mg PO Q4HR PRN #24 tablet 08/02/19 - PHYSICAL EXAM AT DISCHARGE General Appearance: positive: No acute distress Eyes Bilateral: positive: Normal inspection, PERRL, EOMI ENT: positive: ENT inspection nml Neck: positive: Nml inspection Respiratory: positive: Chest non-tender, No respiratory distress, Breath sounds nml Cardiovascular: positive: Regular rate & rhythm Abdomen: positive: Other (Appropriately tender to palpation, no rebound no guarding, wounds clean dry and intact, no erythema, no concerns for hernia or fluctuance.) Extremities: positive: Non-tender, Full ROM Neurologic/Psychiatric: positive: Oriented x3, CN's nml (2-12) - LABS Result Diagrams: 08/02/19 04:55 08/02/19 04:55 - DIAGNOSTIC IMAGING Diagnostic Imaging Results: Prelim report reviewed, Final report reviewed - SEPSIS Current Stage of Sepsis: Resolved Possible source of Sepsis: GI tract/intra-abdominal Confirmed Source and Organism (if known) of Sepsis: Gram-negative bacilli Sepsis Criteria: Recorded Temperature greater than 38.3C or Less than 36C, Recorded Heart Rate greater than 90 bpm, WBC count greater than 12,000 or less than 4000"
[2019-08-02] MEDS ORDERED: DEXAMETHASONE 4 MG/ML VIAL IVP ONE (16:19)
[2019-08-02 19:26] VITALS: BP 144/97
[2019-08-02] MEDS ORDERED: DIVALPROEX ER 250 MG TABLET PO SCH (21:00)
== END 2019-08-02 16:20 | disposition home or self-care (01) ==
LOC: ED 12:15 → SDS 17:10 → MS2 21:14
PROVIDERS: ADMIT Surgery; ATTEND Surgery
PROC: 0DTJ4ZZ Resection of Appendix, Percutaneous Endoscopic Approach (ICD-10-PCS; principal; 2019-08-01 17:18)
DX: A41.9 Sepsis, unspecified organism (principal); K35.30 Acute appendicitis with localized peritonitis, without perforation or gangrene; I10 Essential (primary) hypertension; E11.9 Type 2 diabetes mellitus without complications; F17.200 Nicotine dependence, unspecified, uncomplicated; K42.9 Umbilical hernia without obstruction or gangrene; F31.9 Bipolar disorder, unspecified; E66.9 Obesity, unspecified; Z68.36 Body mass index [BMI] 36.0-36.9, adult; Z79.899 Other long term (current) drug therapy
CPT/HCPCS: 36415; 44970; 71045; 74177; 76705; 80053; 81003; 83036; 83690; 83735; 84100; 85025; 87070; 87077; 87181; 87205; 88304; 93005; 96365; 96375; 96376; 99285; A9270; G0378; J0131; J1170; J2795; J7120; Q9967; 81001; 87086

== ENCOUNTER 2019-10-05 14:16 | Outpatient (CLI) | payer MEDICAID ==
[2019-10-05 18:50] LABS: CREATININE 0.9 mg/dL (0.6-1.2)
[2019-10-05 19:02] LABS: CREATININE,URINE 180.5 mg/dL
[2019-10-05 19:18] LABS: HB2 TOTAL 15.2 g/dL; HEMOGLOBIN A1C 0.7 g/dL; HEMOGLOBIN A1C % 6.4 % (4.6-6.2)
[2019-10-05 19:19] LABS: MICROALBUMIN,URINE < 0.2 mg/dL (0-300.0)
== END 2019-10-05 23:59 | disposition home or self-care (01) ==
LOC: LAB.WCP 14:16
PROVIDERS: ATTEND Family Medicine
DX: E11.9 Type 2 diabetes mellitus without complications (principal)
CPT/HCPCS: 36415; 80048; 82043; 82570; 83036

== ENCOUNTER 2019-10-07 08:00 | Outpatient (CLI) | payer MEDICAID | END 2019-10-07 23:59 | disposition home or self-care (01) | LOC: LAB.R 08:00 | PROVIDERS: ATTEND Family Medicine | DX: J02.9 Acute pharyngitis, unspecified (principal) | CPT/HCPCS: 87070 ==

== ENCOUNTER 2020-02-09 10:05 | Outpatient (CLI) | payer MEDICAID ==
[2020-02-09 11:59] LABS: BASOPHILS # (AUTO) 0.1 10^3/uL (0.0-0.1); BASOPHILS % (AUTO) 0.9 %; EOSINOPHILS # (AUTO) 0.4 10^3/uL (0.0-0.7); EOSINOPHILS % (AUTO) 3.7 %; LYMPHOCYTES # (AUTO) 3.4 10^3/uL (1.5-3.5); LYMPHOCYTES % (AUTO) 35.4 %; MEAN CORPUSCULAR HEMOGLOBIN 31.5 pg (27.0-31.0); MEAN CORPUSCULAR HGB CONC 33.3 g/dL (32.0-36.0); MEAN CORPUSCULAR VOLUME 94.6 fL (80.0-94.0); MEAN PLATELET VOLUME 10.8 fL (7.4-11.4); MONOCYTES # (AUTO) 0.8 10^3/uL (0.0-1.0); MONOCYTES % (AUTO) 8.7 %; NEUTROPHILS # (AUTO) 4.9 10^3/uL (1.5-6.6); NEUTROPHILS % (AUTO) 51.1 %; PLT - PLATELET COUNT 282 10^3/uL (130-450); RED BLOOD COUNT 4.44 10^6/uL (4.70-6.10); RED CELL DISTRIBUTION WIDTH 13.7 % (12.0-15.0); WHITE BLOOD COUNT 9.5 x10^3/uL (4.8-10.8)
[2020-02-09 12:16] LABS: ALBUMIN/GLOBULIN RATIO 1.5 (1.0-2.2); ALKALINE PHOSPHATASE 74 IU/L (42-121); ALT ALANINE AMINOTRANSFERASE 33 IU/L (10-60); AST ASPARTATE AMINOTRANSFERASE 18 IU/L (10-42); BILIRUBIN,TOTAL 0.5 mg/dL (0.2-1.0); BUN - BLOOD UREA NITROGEN 16 mg/dL (6-20); CALCIUM 9.2 mg/dL (8.5-10.3); CARBON DIOXIDE - CO2 27 mmol/L (21-32); CHLORIDE 95 mmol/L (101-111); CHOL/HDL RATIO 8.5 (<5.0); CHOLESTEROL 212 mg/dL; GLUCOSE 177 mg/dL (70-100); HDL CHOLESTEROL 25 mg/dL; SODIUM 131 mmol/L (135-145); TOTAL PROTEIN 6.7 g/dL (6.7-8.2)
[2020-02-09 12:45] LABS: LDL CHOLESTEROL,DIRECT 121 mg/dL; LDLD/HDL RATIO 4.8 (<3.6)
[2020-02-09 14:14] LABS: HEMOGLOBIN A1c% 6.7 % (4.27-6.07)
== END 2020-02-09 10:06 | disposition home or self-care (01) ==
LOC: LAB.N 10:05
PROVIDERS: ATTEND Nurse Practitioner
DX: I10 Essential (primary) hypertension (principal); E11.9 Type 2 diabetes mellitus without complications; F31.9 Bipolar disorder, unspecified; Z79.899 Other long term (current) drug therapy
CPT/HCPCS: 36415; 80050; 80061; 83036; 83721; 84153

== ENCOUNTER 2020-03-07 06:43 | Outpatient (CLI) | payer MEDICAID ==
--- NOTE | 2020-03-07 16:05 | MRI Report ---
PROCEDURE: Lumbar Spine W/O INDICATIONS: RT SIDE LUMBAGO W/SCIATICA, LUMBAR PAIN W/RAD TECHNIQUE: Noncontrast sagittal T1 spin echo and T2 fast echo, sagittal STIR, axial T1 and T2 fast spin echo thr ough the lumbar spine. In cases with scoliosis, additional coronal T2 fast spin echo may be performe d. COMPARISON: X-ray lumbar spine 10/05/2019 FINDINGS: Image quality: Excellent. Alignment and Curvature: There is trace retrolisthesis of L1 on L2, L2 on 3, L3 on L4, L5 on S1. Bone Marrow: Marrow is of normal overall signal. No acute vertebral body compression fractures. Spinal Cord: Conus medullaris terminates at the L1 level. Visualized cord demonstrates normal signa l and size. Paraspinous Soft Tissues: No paravertebral masses. Right renal T2 hyperintensity is present, most s uggestive of cyst. Discs: Moderate to severe desiccation is present throughout the lumbar spine. L1-L2: Mild disc bulge with superimposed left posterior paracentral extrusion with effacement of t he anterior thecal sac. Minimal left foraminal narrowing. Prominent epidural lipomatosis. L2-L3: Mild disc bulge with mild to moderate spinal stenosis. Moderate right and mild left foramin al narrowing with facet and ligamentum flavum hypertrophy. Prominent epidural lipomatosis is present. L3-L4: Mild disc bulge including a right foraminal and lateral component. There is moderate spinal stenosis. Moderate to severe right and mild left foraminal narrowing with facet and ligamentum flavum hypertrophy. Prominent epidural lipomatosis is present. L4-L5: Mild disc bulge with moderate spinal stenosis. Severe right and moderate to severe left fora ivonne narrowing with facet and ligamentum flavum hypertrophy. Prominent epidural lipomatosis is prese nt. L5-S1: Mild disc bulge with severe spinal stenosis. Severe bilateral foraminal narrowing with facet and ligamentum flavum hypertrophy. Prominent epidural lipomatosis is present. IMPRESSION: 1. Multilevel spinal stenosis most severe at L5-S1 secondary to epidural lipomatosis, with contributi ng effect of disc bulge. 2. Multilevel foraminal narrowing most severe at L5-S1 secondary to facet arthropathy as well as retr olisthesis. Reviewed by: Stacy Rowley MD on 03/07/2020 4:04 PM PST Approved by: Stacy Rowley MD on 03/07/2020 4:04 PM PST Station ID: [id number]
== END 2020-03-07 06:44 | disposition home or self-care (01) ==
LOC: DI 06:43
PROVIDERS: ATTEND Nurse Practitioner
DX: M54.41 Lumbago with sciatica, right side (principal); M54.16 Radiculopathy, lumbar region; M48.061 Spinal stenosis, lumbar region without neurogenic claudication; E88.2 Lipomatosis, not elsewhere classified
CPT/HCPCS: 72148

== ENCOUNTER 2020-03-30 08:00 | Outpatient (CLI) | payer MEDICAID ==
[2020-03-30 18:22] LABS: VALPROIC ACID (DEPAKOTE) 51.9 ug/mL
== END 2020-03-30 23:59 ==
LOC: LAB.WCP 08:00
PROVIDERS: ATTEND Family Medicine
DX: F31.30 Bipolar disorder, current episode depressed, mild or moderate severity, unspecified (principal)
CPT/HCPCS: 36415; 80164

== ENCOUNTER 2020-09-16 08:00 | Outpatient (CLI) | payer MEDICAID, OTHER ==
[2020-09-16 12:17] LABS: CREATININE,URINE 191.4 mg/dL; MICROALBUM/CREATININE RATIO,UR 3.7 ug/mg (<30.0); MICROALBUMIN,URINE 0.7 mg/dL (0-300.0)
[2020-09-16 12:38] LABS: BASOPHILS # (AUTO) 0.1 10^3/uL (0.0-0.1); BASOPHILS % (AUTO) 0.8 %; EOSINOPHILS # (AUTO) 0.2 10^3/uL (0.0-0.7); EOSINOPHILS % (AUTO) 2.7 %; HCT - HEMATOCRIT 42.2 % (42.0-52.0); LYMPHOCYTES # (AUTO) 2.1 10^3/uL (1.5-3.5); LYMPHOCYTES % (AUTO) 33.2 %; MEAN CORPUSCULAR HEMOGLOBIN 30.8 pg (27.0-31.0); MEAN CORPUSCULAR HGB CONC 33.2 g/dL (32.0-36.0); MEAN CORPUSCULAR VOLUME 92.7 fL (80.0-94.0); MEAN PLATELET VOLUME 10.3 fL (7.4-11.4); MONOCYTES # (AUTO) 0.6 10^3/uL (0.0-1.0); MONOCYTES % (AUTO) 8.9 %; NEUTROPHILS # (AUTO) 3.4 10^3/uL (1.5-6.6); NEUTROPHILS % (AUTO) 54.1 %; PLT - PLATELET COUNT 279 10^3/uL (130-450); RED BLOOD COUNT 4.55 10^6/uL (4.70-6.10); RED CELL DISTRIBUTION WIDTH 13.7 % (12.0-15.0); WHITE BLOOD COUNT 6.3 x10^3/uL (4.8-10.8)
[2020-09-16 12:52] LABS: ESTIMATED AVERAGE GLUCOSE 111 mg/dL (70-100); HEMOGLOBIN A1c% 5.5 % (4.27-6.07)
[2020-09-16 12:54] LABS: ALBUMIN 4.3 g/dL (3.2-5.5); ALBUMIN/GLOBULIN RATIO 1.7 (1.0-2.2); ALKALINE PHOSPHATASE 71 IU/L (42-121); ALT ALANINE AMINOTRANSFERASE 37 IU/L (10-60); AST ASPARTATE AMINOTRANSFERASE 22 IU/L (10-42); BILIRUBIN,TOTAL 0.7 mg/dL (0.2-1.0); BUN - BLOOD UREA NITROGEN 16 mg/dL (6-20); CALCIUM 9.1 mg/dL (8.5-10.3); CARBON DIOXIDE - CO2 24 mmol/L (21-32); CHLORIDE 93 mmol/L (101-111); CHOL/HDL RATIO 7.7 (<5.0); CHOLESTEROL 232 mg/dL; CREATININE 0.8 mg/dL (0.6-1.2); GFR - MDRD 102 (>89); GLUCOSE 103 mg/dL (70-100); HDL CHOLESTEROL 30 mg/dL; LDL CHOLESTEROL,DIRECT 129 mg/dL; POTASSIUM 4.2 mmol/L (3.5-5.0); SODIUM 131 mmol/L (135-145); TOTAL PROTEIN 6.8 g/dL (6.7-8.2); TRIGLYCERIDES 454 mg/dL
== END 2020-09-16 23:59 | disposition home or self-care (01) ==
LOC: LAB.WCP 08:00
PROVIDERS: ATTEND Nurse Practitioner
DX: E11.9 Type 2 diabetes mellitus without complications (principal)
CPT/HCPCS: 36415; 80053; 80061; 82043; 82570; 83036; 83721; 85025

== ENCOUNTER 2020-10-26 16:45 | Outpatient (CLI) | payer MEDICAID, OTHER | END 2020-10-26 23:59 | disposition home or self-care (01) | LOC: LAB.N 16:45 | PROVIDERS: ATTEND Nurse Practitioner | DX: L08.9 Local infection of the skin and subcutaneous tissue, unspecified (principal) | CPT/HCPCS: 87070; 87181; 87205 ==

== ENCOUNTER 2020-12-21 08:00 | Outpatient (CLI) | payer MEDICAID | END 2020-12-21 23:59 | disposition home or self-care (01) | LOC: LAB 08:00 | PROVIDERS: ATTEND Nurse Practitioner | DX: J32.9 Chronic sinusitis, unspecified (principal); Z20.822 Contact with and (suspected) exposure to COVID-19 ==

== ENCOUNTER 2021-01-15 13:56 | Outpatient (CLI) | payer MEDICAID | END 2021-01-15 13:57 | disposition home or self-care (01) | LOC: LAB 13:56 | PROVIDERS: ATTEND Family Medicine | DX: L03.90 Cellulitis, unspecified (principal) | CPT/HCPCS: 87070; 87181; 87205 ==

== ENCOUNTER 2021-03-02 08:00 | Outpatient (CLI) | payer MEDICAID ==
[2021-03-02 12:19] LABS: CALCIUM 9.3 mg/dL (8.5-10.3); CREATININE 0.9 mg/dL (0.6-1.2); POTASSIUM 4.1 mmol/L (3.5-5.0)
[2021-03-02 12:49] LABS: CREATININE,URINE 177.8 mg/dL; MICROALBUM/CREATININE RATIO,UR 2.8 ug/mg (<30.0); MICROALBUMIN,URINE 0.5 mg/dL (0-300.0)
[2021-03-02 14:46] LABS: ESTIMATED AVERAGE GLUCOSE 120 mg/dL (70-100); HEMOGLOBIN A1c% 5.8 % (4.27-6.07)
== END 2021-03-02 23:59 | disposition home or self-care (01) ==
LOC: LAB.WCP 08:00
PROVIDERS: ATTEND Family Medicine
DX: E11.9 Type 2 diabetes mellitus without complications (principal)
CPT/HCPCS: 36415; 80048; 82043; 82570; 83036

== ENCOUNTER 2021-03-21 08:00 | Outpatient (CLI) | payer MEDICAID | END 2021-03-21 23:59 | disposition home or self-care (01) | LOC: LAB.N 08:00 | PROVIDERS: ATTEND Nurse Practitioner | DX: L02.91 Cutaneous abscess, unspecified (principal) | CPT/HCPCS: 87070; 87181; 87205 ==

== ENCOUNTER 2021-04-19 08:00 | Outpatient (CLI) | payer MEDICAID ==
--- NOTE | 2021-04-19 15:47 | XRAY Report ---
PROCEDURE: Hip w/Pelvis 1V RT INDICATIONS: R HIP PX TECHNIQUE: AP pelvis with lateral view(s) of the right hip(s). COMPARISON: None. FINDINGS: Bones: No fractures or dislocations. Pelvic ring appears intact. Mild hip and sacroiliac joint deg eneration bilaterally. Moderate degenerative disc and facet disease in the lower lumbar spine. No caity picious bony lesions. Soft tissues: The visualized bowel gas pattern is normal. No suspicious soft tissue calcifications. IMPRESSION: Mild degenerative joint disease in hips and sacroiliac joints bilaterally. Reviewed by: Tang Cramer MD on 04/19/2021 3:46 PM PST Approved by: Tang Cramer MD on 04/19/2021 3:46 PM PST Station ID: [id number]
== END 2021-04-19 23:59 | disposition home or self-care (01) ==
LOC: DI.N 08:00
PROVIDERS: ATTEND Physician Assistant Medical
DX: M16.0 Bilateral primary osteoarthritis of hip (principal)

== ENCOUNTER 2021-07-07 08:54 | Outpatient (CLI) | payer MEDICAID ==
[2021-07-07 09:43] VITALS: BP 134/75
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
== END 2021-07-07 08:55 | disposition home or self-care (01) ==
LOC: SC 08:54
PROVIDERS: ATTEND Nurse Practitioner Family
DX: G47.10 Hypersomnia, unspecified (principal); R53.83 Other fatigue; G47.8 Other sleep disorders; R51.9 Headache, unspecified; R06.83 Snoring; R06.81 Apnea, not elsewhere classified; F32.A Depression, unspecified; E11.9 Type 2 diabetes mellitus without complications; I10 Essential (primary) hypertension; E66.9 Obesity, unspecified; Z68.36 Body mass index [BMI] 36.0-36.9, adult; Z87.891 Personal history of nicotine dependence
CPT/HCPCS: 99203; 99212

== ENCOUNTER 2021-07-13 15:26 | Outpatient (CLI) | payer MEDICAID | END 2021-07-13 15:27 | disposition home or self-care (01) | LOC: SC 15:26 | PROVIDERS: ATTEND Nurse Practitioner Family | DX: G47.33 Obstructive sleep apnea (adult) (pediatric) (principal); R09.02 Hypoxemia | CPT/HCPCS: 95806 ==

== ENCOUNTER 2021-08-04 13:55 | Outpatient (CLI) | payer MEDICAID ==
[2021-08-04 14:39] VITALS: BP 137/98
--- NOTE | 2021-08-04 14:39 | SLEEP CARE CONSULTATION ---
Information from patient questionnaire entered by Lloyd Branch MA. I have reviewed and concur with the information entered by Lloyd Branch MA. This document represents the service I personally performed and the decisions made by , Ursula Lainez ARNP. History of Present Illness Service Date and Time: 08/04/2021 1355 Initial [place] Sleepiness Scale score: 13 (06/2021) Current [place] Sleepiness Scale score: 16 (08/04/2021) Additional HPI information: GRACIELA ROMEO returns for follow up and results of the recently performed home sleep study. I explained the pathophysiology behind obstructive sleep apnea. We then spent quite a bit of time discussing different treatment options. For mild obstructive sleep apnea, surgery and oral appliance are alternatives to nasal CPAP therapy but in moderate or severe cases, nasal CPAP is the most effective and reliable treatment. Because apnea is primarily in supine position, then positional management therapy could be effective. Methods discussed such as positioning with pillows to prevent supine sleep. I reviewed the impact of weight changes on sleep apnea and strongly recommended losing weight. After some discussion, the patient opted to go with the nasal CPAP therapy. Nasal autoCPAP set at 4-15 cmH20 will be ordered with rationale explained. A manual titration study will be ordered if unable to find optimal pressure with office adjustments. I explained how CPAP machine works and what to expect when using the machine. Using CPAP every night in order to get used to it was emphasized. Patient advised to put CPAP mask on before getting into bed so as not to fall asleep without CPAP. To assist acclimation to CPAP use, it could also be used for a short time during day while reading or watching TV. The patient was instructed to call the CPAP supplier to discuss any mechanical problem that may occur. If the mask given is uncomfortable or is difficult to keep on through the night even with adjustment, contact the CPAP supplier as many will replace with an other mask style if notified before 30 days. If snoring or perceives is not getting enough air or too much air from the machine, notify this office. Patient does not drink alcohol. Patient was cautioned about risks of drowsy driving until sleepiness symptoms resolve. Patient denies drowsy driving. Sleep Study - Results Type of Sleep Study: Home sleep study (F/U HOME STUDY, 07/13/21 [facility], POS,) Prior sleep studies: No Polysomnography/Home Sleep Study results: Physician Impression: The quality of the study is fair due to partial loss of pulse oximetry signal. The length of the study is adequate (> 240 minutes). Please also see the tabulated and graphic data. 1. Obstructive Sleep Apnea-Hypopnea (ICD-10 G47.33), mild, with an AHI of 14.5/hr and [place] SaO2 of 86%. During the study, the patient had 66 apneas (66 obstructive, 0 central, 0 mixed) and 88 hypopneas. The longest episode lasted 116.0 seconds. The respiratory events occurred more frequently during supine sleep (supine AHI was 23.0 and non-supine, 12.39). 2. Hypoxemia (ICD-10 R09.02), mild, with the lowest oxygen saturation of 86 % and 2.1 minutes with SaO2 under 90%. Baseline oxygen saturation was normal (Average oxygen saturation was 94%). Allergies and Home Medications Known drug allergies: Yes (LIBRAX (STOMACH) CHANTICX (SMOKING)) Home medication list reviewed: Yes (no changes) Allergy and home medication list: Allergies chlordiazepoxide [From Librax (with clidinium)] Allergy (Verified 10/05/19 14:58) Anaphylaxis clidinium [From Librax (with clidinium)] Allergy (Verified 10/05/19 14:58) Anaphylaxis haloperidol [From Haldol] Allergy (Verified 10/05/19 14:58) Itching varenicline [From Chantix] Allergy (Verified 10/05/19 14:58) Dizziness Review of Systems Review of systems same as previous: Yes (no changes) Physical Exam Vital signs obtained and entered by: Heri BRANCH CMA [facility] Blood Pressure: 137/98 (LEFT, PULSE 89, RESP 20, ) Heart Rate: 91 O2 Saturation: 96 (PAPER MASK) Height: 5 ft 10 in Weight: 260 lb Body Mass Index: 37.3 BMI Classification: Obese Impression and Plan 1. Obstructive Sleep Apnea-Hypopnea Syndrome, mild, with lowest oxygen saturation of 86%. Obviously this is the cause of the patients symptoms of unrefreshed sleep, and excessive daytime sleepiness. Positive pressure therapy could benefit hypertension, diabetes, anxiety, depression and mood disorder (bipolar 1). As mentioned above, the patient will be started on nasal autoCPAP therapy with pressure set at 4-15 cmH2O. Compliance guidelines also reviewed. A copy of compliance guidelines will be given for reference at check out. Because the apnea is more severe supine, I instructed to avoid sleeping supine using pillow positioning until able to start CPAP use. 2. Hypoxemia, mild, with the lowest oxygen saturation of 86 % and 2.1 minutes with SaO2 under 90%. His baseline oxygen saturation was normal with an average oxygen saturation of 94%. * Nasal auto CPAP therapy, pressure at 4-15 cm H2O. * Attempt to lose weight. * Avoid alcohol consumption near bedtime. * Avoid supine sleep until using CPAP. * The patient is again cautioned about driving until sleepiness completely resolves. * Return one month after CPAP obtained. I will assess response to therapy and compliance at that time. Counseling Topics: Weight loss health impact Visit Type: In Office Time Spent with Patient (minutes): 20 Provider Statement: I spent 100% of the Face to Face Visit with the patient with greater than 50% spent counseling the patient and coordination of care.
== END 2021-08-04 13:56 | disposition home or self-care (01) ==
LOC: SC 13:55
PROVIDERS: ATTEND Nurse Practitioner Family
DX: G47.33 Obstructive sleep apnea (adult) (pediatric) (principal); R09.02 Hypoxemia; E66.9 Obesity, unspecified; Z68.37 Body mass index [BMI] 37.0-37.9, adult
CPT/HCPCS: 99212; 99213

== ENCOUNTER 2021-09-12 12:51 | Outpatient (CLI) | payer MEDICAID ==
[2021-09-12 18:22] LABS: BASOPHILS # (AUTO) 0.1 10^3/uL (0.0-0.1); BASOPHILS % (AUTO) 0.6 %; EOSINOPHILS # (AUTO) 0.1 10^3/uL (0.0-0.7); EOSINOPHILS % (AUTO) 0.9 %; HCT - HEMATOCRIT 42.1 % (42.0-52.0); HGB - HEMOGLOBIN 14.4 g/dL (14.0-18.0); LYMPHOCYTES # (AUTO) 2.2 10^3/uL (1.5-3.5); LYMPHOCYTES % (AUTO) 27.9 %; MEAN CORPUSCULAR HEMOGLOBIN 31.5 pg (27.0-31.0); MEAN CORPUSCULAR HGB CONC 34.2 g/dL (32.0-36.0); MEAN CORPUSCULAR VOLUME 92.1 fL (80.0-94.0); MEAN PLATELET VOLUME 10.9 fL (7.4-11.4); MONOCYTES # (AUTO) 0.7 10^3/uL (0.0-1.0); MONOCYTES % (AUTO) 8.7 %; NEUTROPHILS # (AUTO) 4.9 10^3/uL (1.5-6.6); NEUTROPHILS % (AUTO) 61.6 %; PLT - PLATELET COUNT 293 10^3/uL (130-450); RED BLOOD COUNT 4.57 10^6/uL (4.70-6.10); RED CELL DISTRIBUTION WIDTH 13.1 % (12.0-15.0); WHITE BLOOD COUNT 7.9 x10^3/uL (4.8-10.8)
[2021-09-12 18:37] LABS: ALBUMIN 4.5 g/dL (3.2-5.5); ALBUMIN/GLOBULIN RATIO 1.8 (1.0-2.2); ALKALINE PHOSPHATASE 63 IU/L (42-121); ALT ALANINE AMINOTRANSFERASE 34 IU/L (10-60); AST ASPARTATE AMINOTRANSFERASE 21 IU/L (10-42); BILIRUBIN,TOTAL 0.3 mg/dL (0.2-1.0); BUN - BLOOD UREA NITROGEN 14 mg/dL (6-20); CALCIUM 9.7 mg/dL (8.5-10.3); CARBON DIOXIDE - CO2 26 mmol/L (21-32); CHLORIDE 101 mmol/L (101-111); CHOL/HDL RATIO 4.9 (<5.0); CHOLESTEROL 180 mg/dL; CREATININE 0.8 mg/dL (0.6-1.2); GFR - MDRD 102 (>89); GLUCOSE 124 mg/dL (70-100); HDL CHOLESTEROL 37 mg/dL; POTASSIUM 4.1 mmol/L (3.5-5.0); SODIUM 135 mmol/L (135-145); TRIGLYCERIDES 428 mg/dL
[2021-09-12 18:44] LABS: THYROID STIMULATING HORMONE 0.9 uIU/mL (0.34-5.60)
[2021-09-12 19:16] LABS: LDL CHOLESTEROL,DIRECT 89 mg/dL; LDLD/HDL RATIO 2.4 (<3.6)
[2021-09-12 21:15] LABS: ESTIMATED AVERAGE GLUCOSE 154 mg/dL (70-100)
== END 2021-09-12 12:52 | disposition home or self-care (01) ==
LOC: LAB.N 12:51
PROVIDERS: ATTEND Nurse Practitioner Family
DX: E11.69 Type 2 diabetes mellitus with other specified complication (principal); E78.5 Hyperlipidemia, unspecified; I10 Essential (primary) hypertension
CPT/HCPCS: 36415; 80050; 80061; 83036; 83721

== ENCOUNTER 2022-07-02 11:20 | Outpatient (CLI) | payer MEDICARE, MEDICAID ==
[2022-07-02 17:54] LABS: ALBUMIN 4.2 g/dL (3.2-5.5); ALBUMIN/GLOBULIN RATIO 1.5 (1.0-2.2); ALKALINE PHOSPHATASE 58 IU/L (42-121); ALT ALANINE AMINOTRANSFERASE 18 IU/L (10-60); AST ASPARTATE AMINOTRANSFERASE 16 IU/L (10-42); BILIRUBIN,TOTAL 0.5 mg/dL (0.2-1.0); BUN - BLOOD UREA NITROGEN 11 mg/dL (6-20); CARBON DIOXIDE - CO2 26 mmol/L (21-32); CHLORIDE 98 mmol/L (101-111); CHOL/HDL RATIO 5.2 (<5.0); CHOLESTEROL 206 mg/dL; CREATININE 0.7 mg/dL (0.6-1.2); CREATININE,URINE 164.1 mg/dL; GFR - MDRD 118 (>89); GLUCOSE 113 mg/dL (70-100); HDL CHOLESTEROL 40 mg/dL; MICROALBUM/CREATININE RATIO,UR 2.4 ug/mg (<30.0); MICROALBUMIN,URINE 0.4 mg/dL (0-300.0); POTASSIUM 4.6 mmol/L (3.5-5.0); SODIUM 135 mmol/L (135-145); TRIGLYCERIDES 443 mg/dL
[2022-07-02 18:03] LABS: THYROID STIMULATING HORMONE 0.55 uIU/mL (0.34-5.60)
[2022-07-02 18:58] LABS: LDL CHOLESTEROL,DIRECT 112 mg/dL; LDLD/HDL RATIO 2.8 (<3.6)
[2022-07-02 20:49] LABS: ESTIMATED AVERAGE GLUCOSE 128 mg/dL (70-100); HEMOGLOBIN A1c% 6.1 % (4.27-6.07)
== END 2022-07-02 11:21 | disposition home or self-care (01) ==
LOC: LAB.N 11:20
PROVIDERS: ATTEND Family Medicine
DX: E11.9 Type 2 diabetes mellitus without complications (principal); E87.1 Hypo-osmolality and hyponatremia; M19.90 Unspecified osteoarthritis, unspecified site; E66.9 Obesity, unspecified; F41.0 Panic disorder [episodic paroxysmal anxiety]; E78.5 Hyperlipidemia, unspecified; R41.3 Other amnesia; G89.4 Chronic pain syndrome; G40.909 Epilepsy, unspecified, not intractable, without status epilepticus
CPT/HCPCS: 36415; 80053; 80061; 82043; 82570; 83036; 83721; 84443

== ENCOUNTER 2022-10-19 13:28 | Outpatient (CLI) | payer MEDICARE, MEDICAID ==
[2022-10-19 18:16] LABS: ALBUMIN 4.6 g/dL (3.2-5.5); BILIRUBIN,TOTAL 0.4 mg/dL (0.2-1.0); CALCIUM 9.7 mg/dL (8.5-10.3); CREATININE 0.8 mg/dL (0.6-1.3); POTASSIUM 4.4 mmol/L (3.5-4.5); TOTAL PROTEIN 6.9 g/dL (6.4-8.9)
[2022-10-19 18:19] LABS: CREATININE,URINE 201.1 mg/dL
[2022-10-20 04:41] LABS: ESTIMATED AVERAGE GLUCOSE 131 mg/dL (70-100); HEMOGLOBIN A1c% 6.2 % (4.27-6.07)
== END 2022-10-19 13:29 | disposition home or self-care (01) ==
LOC: LAB.N 13:28
PROVIDERS: ATTEND Family Medicine
DX: E11.69 Type 2 diabetes mellitus with other specified complication (principal); K29.00 Acute gastritis without bleeding; R19.7 Diarrhea, unspecified; R11.2 Nausea with vomiting, unspecified; E66.9 Obesity, unspecified; F41.0 Panic disorder [episodic paroxysmal anxiety]; G40.909 Epilepsy, unspecified, not intractable, without status epilepticus; F31.30 Bipolar disorder, current episode depressed, mild or moderate severity, unspecified; F41.9 Anxiety disorder, unspecified
CPT/HCPCS: 36415; 80053; 82043; 82570; 83036

== ENCOUNTER 2023-01-29 07:58 | Day surgery (SDC) | payer MEDICARE, MEDICAID ==
[~2023-01-29 07:58] MED LIST: LACTATED RINGERS 1,000 ML IV ONE
[2023-01-29] MEDS ORDERED: PROPOFOL 500 MG/50 ML 500 MG/50 ML VIAL ONE (09:08)
--- NOTE | 2023-01-29 09:17 | ANESTHESIA ---
Pre-Anesthesia VS, & Labs - Diagnosis screening - Procedure colonoscopy Vital Signs: Temp Pulse Resp BP Pulse Ox O2 Flow Rate 36.4 C L 83 18 136/89 H 98 01/29/23 08:20 01/29/23 08:20 01/29/23 08:20 01/29/23 08:20 01/29/23 08:20 Height: 5 ft 11 in Weight (kg): 107.3 kg Body Mass Index: 33.0 BMI Classification: Obese - NPO Other (prep as directed) - Lab Results Current Lab Results: Laboratory Tests 01/29/23 08:38: POC Whole Bld Glucose 148 H Home Medications and Allergies Metoprolol Tartrate 25 mg PO BID 10/21/17 risperiDONE [Risperdal] 1 mg PO QPM 10/21/17 Divalproex Sodium [Depakote ER] 2,000 mg PO QPM 06/29/19 Fluticasone [Flonase] 1 spray DORI BID 06/29/19 Trazodone HCl 100 - 200 mg PO QPM 06/29/19 Metformin HCl 1,000 mg PO BIDWM 07/31/19 Gabapentin 100 mg PO BID 08/01/19 risperiDONE [Risperdal] 1.5 mg PO DAILY 08/01/19 Allergies/Adverse Reactions: Allergies Allergy/AdvReac Type Severity Reaction Status Date / Time chlordiazepoxide Allergy Anaphylaxis Verified 10/05/19 14:58 [From Librax (with clidinium)] clidinium Allergy Anaphylaxis Verified 10/05/19 14:58 [From Librax (with clidinium)] haloperidol [From Haldol] Allergy Itching Verified 10/05/19 14:58 varenicline [From Chantix] Allergy Dizziness Verified 10/05/19 14:58 Anes History & Medical History - Anesthetic History Anesthesia Complications: reports: No previous complications - Medical History Cardiovascular: reports: Hypertension Pulmonary: reports: None, Other Gastrointestinal: reports: GERD, Colon polyps Urinary: reports: Benign prostate hypertrophy, Renal insuffiency Neuro: reports: None Musculoskeletal: reports: Osteoarthritis, Chronic back pain Endocrine/Autoimmune: reports: Type 2 diabetes Blood Disorders: reports: None Skin: reports: Psoriasis Smoking Status: Current every day smoker - Surgical History General: reports: Appendectomy, Colonoscopy Orthopedic: reports: Carpal Tunnel surgery Exam General: Alert, Oriented x3 Dental: WNL Mouth Opening: Greater than 4 Fingerbreadths Neck Mobility: Normal Mallampati classification: II Respiratory: Lungs clear Cardiovascular: Regular rate Plan Anesthesia Type: Total IV Consent for Procedure(s) Verified and Reviewed: Yes Code Status: Attempt Resuscitation ASA classification: 2-Mild systemic disease Is this case an emergency?: No
[2023-01-29] MEDS ORDERED: ONDANSETRON 4 MG/2 ML VIAL ONE (09:41)
--- NOTE | 2023-01-29 10:02 | ANESTHESIA POST OP EVALUATION ---
Anesthesia Post Eval - Post Anesthesia Eval Vitals: Last Vital Signs Temp 36.4 C L 01/29/23 08:20 Pulse 83 01/29/23 08:20 Resp 18 01/29/23 08:20 BP 136/89 H 01/29/23 08:20 Pulse Ox 98 01/29/23 08:20 O2 Flow Rate CV Function Including HR & BP: Stable Pain Control: Satisfactory Nausea & Vomiting: Negative Mental Status: Baseline Respiratory Status: Airway Patent Hydration Status: Satisfactory Anesthesia Complications: None
[2023-01-29] MEDS ORDERED: LACTATED RINGERS 300 ML IV ONE ×2 (10:34)
[2023-01-29 10:43] VITALS: O2SAT 96
[2023-01-29 11:02] VITALS: BP 129/86
== END 2023-01-29 07:59 | disposition home or self-care (01) ==
LOC: SDS 07:58
PROVIDERS: ATTEND Surgery
PROC: 0DBP8ZX Excision of Rectum, Via Natural or Artificial Opening Endoscopic, Diagnostic (ICD-10-PCS; principal; 2023-01-29 09:30)
DX: Z12.11 Encounter for screening for malignant neoplasm of colon (principal); K62.1 Rectal polyp; K57.30 Diverticulosis of large intestine without perforation or abscess without bleeding; E66.9 Obesity, unspecified; Z68.33 Body mass index [BMI] 33.0-33.9, adult; E11.9 Type 2 diabetes mellitus without complications; Z79.84 Long term (current) use of oral hypoglycemic drugs; F17.200 Nicotine dependence, unspecified, uncomplicated
CPT/HCPCS: 45380; J7120

== ENCOUNTER 2023-05-22 14:56 | Outpatient (CLI) | payer MEDICARE ==
--- NOTE | 2023-05-22 15:55 | XRAY Report ---
PROCEDURE: Knee 4+V LT INDICATIONS: KNEE PAIN, LFT TECHNIQUE: 4 views of the knee(s) were acquired. COMPARISON: None. FINDINGS: Bones: No fractures or dislocations. Mild medial compartment joint space narrowing. Tiny juxta-artic ular osteophytosis in the patellofemoral compartment. The lateral and patellofemoral joint spaces are maintained. No suspicious bony lesions. Soft tissues: No knee joint effusion. No suspicious soft tissue calcifications or masses. IMPRESSION: 1.No acute bony abnormality. If there remains a high clinical concern for fracture, consider cross-se ctional imaging now. If pain persists, consider repeat x-ray in 10-14 days or cross-sectional imaging . 2.Mild medial compartment joint space narrowing and tiny osteophytes in the patellofemoral compartmen t. Reviewed by: Stephy Arango MD on 05/22/2023 3:54 PM PDT Approved by: Stephy Arango MD on 05/22/2023 3:54 PM PDT Station ID: [id number]
== END 2023-05-22 14:57 | disposition home or self-care (01) ==
LOC: DI.N 14:56
PROVIDERS: ATTEND Physician Assistant Surgical
DX: M25.762 Osteophyte, left knee (principal); M25.562 Pain in left knee

== ENCOUNTER 2023-06-24 14:04 | Outpatient (CLI) | payer MEDICAID, MEDICARE | END 2023-06-24 14:05 | disposition home or self-care (01) | LOC: LAB.N 14:04 | PROVIDERS: ATTEND Physician Assistant Medical | DX: R39.9 Unspecified symptoms and signs involving the genitourinary system (principal) | CPT/HCPCS: 36415; 84153 ==

== ENCOUNTER 2023-09-16 10:59 | Outpatient (CLI) | payer MEDICARE ==
[2023-09-16 17:56] LABS: BASOPHILS # (AUTO) 0.1 10^3/uL (0.0-0.1); BASOPHILS % (AUTO) 0.8 %; EOSINOPHILS # (AUTO) 0.2 10^3/uL (0.0-0.7); EOSINOPHILS % (AUTO) 2.7 %; HCT - HEMATOCRIT 40.3 % (42.0-52.0); HGB - HEMOGLOBIN 13.4 g/dL (14.0-18.0); LYMPHOCYTES # (AUTO) 2.4 10^3/uL (1.5-3.5); LYMPHOCYTES % (AUTO) 36.9 %; MEAN CORPUSCULAR HEMOGLOBIN 29.3 pg (27.0-31.0); MEAN CORPUSCULAR HGB CONC 33.3 g/dL (32.0-36.0); MEAN CORPUSCULAR VOLUME 88.2 fL (80.0-94.0); MEAN PLATELET VOLUME 10.4 fL (7.4-11.4); MONOCYTES # (AUTO) 0.7 10^3/uL (0.0-1.0); MONOCYTES % (AUTO) 9.8 %; NEUTROPHILS # (AUTO) 3.3 10^3/uL (1.5-6.6); NEUTROPHILS % (AUTO) 49.6 %; PLT - PLATELET COUNT 322 10^3/uL (130-450); RED BLOOD COUNT 4.57 10^6/uL (4.70-6.10); WHITE BLOOD COUNT 6.6 x10^3/uL (4.8-10.8)
[2023-09-16 18:29] LABS: ALBUMIN 4.6 g/dL (3.2-5.5); ALBUMIN/GLOBULIN RATIO 2.2 (1.0-2.2); ALKALINE PHOSPHATASE 66 IU/L (42-121); ALT ALANINE AMINOTRANSFERASE 17 IU/L (10-60); AST ASPARTATE AMINOTRANSFERASE 14 IU/L (10-42); BILIRUBIN,TOTAL 0.4 mg/dL (0.2-1.0); BUN - BLOOD UREA NITROGEN 9 mg/dL (6-20); CALCIUM 9.6 mg/dL (8.5-10.3); CARBON DIOXIDE - CO2 27 mmol/L (21-32); CHLORIDE 97 mmol/L (101-111); CHOL/HDL RATIO 5.4 (<5.0); CHOLESTEROL 193 mg/dL; CREATININE 0.9 mg/dL (0.6-1.3); GFR - MDRD 88 (>89); GLUCOSE 131 mg/dL (74-104); HDL CHOLESTEROL 36 mg/dL; POTASSIUM 4.6 mmol/L (3.5-4.5); SODIUM 131 mmol/L (135-145); TOTAL PROTEIN 6.7 g/dL (6.4-8.9); TRIGLYCERIDES 480 mg/dL
[2023-09-16 18:33] LABS: THYROID STIMULATING HORMONE 1.11 uIU/mL (0.34-5.60)
[2023-09-16 20:39] LABS: ESTIMATED AVERAGE GLUCOSE 160 mg/dL (70-100); HEMOGLOBIN A1c% 7.2 % (4.27-6.07)
== END 2023-09-16 11:00 | disposition home or self-care (01) ==
LOC: LAB.N 10:59
PROVIDERS: ATTEND Family Medicine
DX: E78.1 Pure hyperglyceridemia (principal); F17.201 Nicotine dependence, unspecified, in remission; K21.9 Gastro-esophageal reflux disease without esophagitis; R73.03 Prediabetes; Z12.5 Encounter for screening for malignant neoplasm of prostate
CPT/HCPCS: 36415; 80053; 80061; 83036; 84443; 85025; G0103; 83721; 84153